=== PATIENT | female | born 1945 | race Caucasian/White ===

== ENCOUNTER 2020-02-21 14:36 | Outpatient (REF) | payer MEDICARE, SELFPAY ==
[2020-02-21 20:08] LABS: Iron 17 ug/dL (50-170); Total Iron Binding Capacity 208 ug/dL (250-450); Transferrin Sat 8 % (15-50)
[2020-02-21 20:34] LABS: ESR 91 mm/hr (0-30)
[2020-02-21 20:37] LABS: C-Reactive Protein 8.24 mg/dL (0.0-0.3)
[2020-02-23 12:12] LABS: Transferrin 158 mg/dL (201-352)
== END 2020-02-21 14:56 ==
LOC: NCHCN 14:36
PROVIDERS: PCP Family Medicine; Visit Provider Nurse Practitioner Family
DX: D64.9 Anemia, unspecified (principal); H53.9 Unspecified visual disturbance
CPT/HCPCS: 85652; 83540; 83550; 84466; 86140

== ENCOUNTER 2020-03-25 11:09 | Outpatient (REF) | payer MEDICARE, SELFPAY ==
[2020-03-25 21:00] LABS: ESR 6 mm/hr (0-30)
== END 2020-03-25 11:29 ==
LOC: NCHCN 11:09
PROVIDERS: PCP Family Medicine; Visit Provider Family Medicine
DX: H47.011 Ischemic optic neuropathy, right eye (principal); M31.6 Other giant cell arteritis
CPT/HCPCS: 85652; 86140

== ENCOUNTER 2020-04-05 15:18 | Outpatient (REF) | payer MEDICARE, SELFPAY ==
[2020-04-05 19:51] LABS: Anion Gap 10.9 mmol/L (3-11); BUN 11 mg/dL (7-18); C-Reactive Protein 1.86 mg/dL (0.0-0.3); CO2 25.1 mmol/L (21.0-32.0); CREATININE 0.64 mg/dL (0.55-1.02); Calcium 8.9 mg/dL (8.5-10.1); Chloride 97 mmol/L (98-107); Glucose 96 mg/dL (74-106); Potassium 4.3 mmol/L (3.5-5.1); Sodium 133 mmol/L (136-145)
[2020-04-05 20:03] LABS: HCT 38.2 % (36.0-46.0); HGB 12.3 g/dL (11.2-15.7); MCHC 32.2 % (32.0-36.0); MCV 86.8 fL (80-95); MPV 8.6 fL (8.0-11.0); Platelet Count 245 10^3/uL (130-400); RDW 17.8 % (11.7-14.6); WBC 14.33 10^3/uL (4.4-10.8)
[2020-04-05 21:31] LABS: ESR 11 mm/hr (0-30)
[2020-04-08 05:24] LABS: Vitamin D 25 Total 51.2 ng/ml (30-100)
== END 2020-04-05 15:38 ==
LOC: NCHCN 15:18
PROVIDERS: PCP Family Medicine; Visit Provider Family Medicine
DX: H47.011 Ischemic optic neuropathy, right eye (principal); M31.6 Other giant cell arteritis; D64.9 Anemia, unspecified; M81.0 Age-related osteoporosis without current pathological fracture; Z51.81 Encounter for therapeutic drug level monitoring
CPT/HCPCS: 80048; 82306; 85027; 85652; 86140

== ENCOUNTER 2020-04-22 20:46 | Outpatient (REF) | payer MEDICARE, SELFPAY ==
[2020-04-22 20:21] LABS: C-Reactive Protein 0.16 mg/dL (0.0-0.3)
[2020-04-22 21:02] LABS: ESR 13 mm/hr (0-30)
== END 2020-04-22 21:06 ==
LOC: NCHCN 20:46
PROVIDERS: PCP Family Medicine; Visit Provider Family Medicine
DX: H47.011 Ischemic optic neuropathy, right eye (principal)
CPT/HCPCS: 85652; 86140

== ENCOUNTER 2020-05-27 10:21 | Outpatient (REF) | payer MEDICARE, SELFPAY ==
[2020-05-27 19:48] LABS: C-Reactive Protein 7.22 mg/dL (0.0-0.3)
[2020-05-27 21:36] LABS: ESR 79 mm/hr (0-30)
== END 2020-05-27 10:41 ==
LOC: NCHCN 10:21
PROVIDERS: PCP Family Medicine; Visit Provider Family Medicine
DX: H47.011 Ischemic optic neuropathy, right eye (principal); G43.809 Other migraine, not intractable, without status migrainosus
CPT/HCPCS: 85652; 86140

== ENCOUNTER 2020-07-01 12:04 | Outpatient (REF) | payer MEDICARE, SELFPAY ==
[2020-07-01 19:22] LABS: C-Reactive Protein 0.85 mg/dL (0.0-0.3)
[2020-07-01 19:58] LABS: ESR 31 mm/hr (0-30)
== END 2020-07-01 12:24 ==
LOC: NCHCN 12:04
PROVIDERS: PCP Family Medicine; Visit Provider Family Medicine
DX: H47.011 Ischemic optic neuropathy, right eye (principal); M31.6 Other giant cell arteritis
CPT/HCPCS: 85652; 86140

== ENCOUNTER 2020-08-08 15:01 | Outpatient (REF) | payer MEDICARE, SELFPAY ==
[2020-08-08 19:15] LABS: C-Reactive Protein 0.39 mg/dL (0.0-0.3)
[2020-08-08 19:41] LABS: ESR 21 mm/hr (0-30)
== END 2020-08-08 15:21 ==
LOC: NCHCN 15:01
PROVIDERS: PCP Family Medicine; Visit Provider Family Medicine
DX: H47.011 Ischemic optic neuropathy, right eye (principal)
CPT/HCPCS: 85652; 86140

== ENCOUNTER 2020-09-10 18:40 | Outpatient (REF) | payer MEDICARE, SELFPAY ==
[2020-09-10 22:32] LABS: ESR 13 mm/hr (0-30)
== END 2020-09-10 19:00 ==
LOC: NCHCN 18:40
PROVIDERS: PCP Family Medicine; Visit Provider Family Medicine
DX: H47.011 Ischemic optic neuropathy, right eye (principal)
CPT/HCPCS: 85652; 86140

== ENCOUNTER 2020-10-16 11:46 | Outpatient (REF) | payer MEDICARE, SELFPAY ==
[2020-10-16 15:30] LABS: C-Reactive Protein 2.75 mg/dL (0.0-0.3)
[2020-10-17 02:12] LABS: ESR 22 mm/hr (<or=30)
== END 2020-10-16 11:47 | disposition home or self-care (01) ==
LOC: NCHCN 11:46
PROVIDERS: PCP Family Medicine; Visit Provider Family Medicine
DX: M31.6 Other giant cell arteritis (principal); H47.011 Ischemic optic neuropathy, right eye; Z51.81 Encounter for therapeutic drug level monitoring
CPT/HCPCS: 85652; 86140

== ENCOUNTER 2020-12-03 13:59 | Outpatient (REF) | payer MEDICARE, SELFPAY ==
[2020-12-03 15:08] LABS: ESR 19 mm//hr (0-30)
[2020-12-03 16:28] LABS: C-Reactive Protein 0.45 mg/dL (0.0-0.3)
== END 2020-12-03 14:00 | disposition home or self-care (01) ==
LOC: NCHCN 13:59
PROVIDERS: PCP Family Medicine; Visit Provider Family Medicine
DX: M31.6 Other giant cell arteritis (principal); H47.011 Ischemic optic neuropathy, right eye; Z51.81 Encounter for therapeutic drug level monitoring
CPT/HCPCS: 85652; 86140

== ENCOUNTER 2021-01-27 16:36 | Outpatient (REF) | payer MEDICARE, SELFPAY ==
[2021-01-27 15:49] LABS: ESR 23 mm/hr (0-30)
[2021-01-27 16:05] LABS: C-Reactive Protein 1.19 mg/dL (0.0-0.3)
== END 2021-01-27 16:37 | disposition home or self-care (01) ==
LOC: NCHCN 16:36
PROVIDERS: PCP Family Medicine; Visit Provider Family Medicine
DX: H47.011 Ischemic optic neuropathy, right eye (principal); Z51.81 Encounter for therapeutic drug level monitoring; Z79.899 Other long term (current) drug therapy; H57.11 Ocular pain, right eye
CPT/HCPCS: 85652; 86140

== ENCOUNTER 2021-02-19 20:12 | Outpatient (REF) | payer MEDICARE, SELFPAY ==
[2021-02-19 20:07] LABS: ESR 37 mm/hr (0-30)
[2021-02-19 20:31] LABS: C-Reactive Protein 3.04 mg/dL (0.0-0.3)
== END 2021-02-19 20:13 | disposition home or self-care (01) ==
LOC: NCHCN 20:12
PROVIDERS: PCP Family Medicine; Visit Provider Family Medicine
DX: M31.6 Other giant cell arteritis (principal); Z79.899 Other long term (current) drug therapy; Z51.81 Encounter for therapeutic drug level monitoring
CPT/HCPCS: 85652; 86140

== ENCOUNTER 2021-03-28 14:41 | Outpatient (REF) | payer MEDICARE, SELFPAY ==
[2021-03-28 19:19] LABS: HCT 31.8 % (36.0-46.0); HGB 9.9 g/dL (11.2-15.7); MCH 29.9 pg (27.0-33.0); MCHC 31.1 % (32.0-36.0); MCV 96.1 fL (80-95); MPV 9.1 fL (8.0-11.0); Platelet Count 451 10^3/uL (130-400); RBC 3.31 10^6/uL (3.93-5.22); RDW 12.5 % (11.7-14.6); WBC 11.78 10^3/uL (4.4-10.8)
[2021-03-28 19:22] LABS: ESR 44 mm/hr (0-30)
[2021-03-28 19:31] LABS: ALT 15 U/L (14-59); AST 11 U/L (15-37); Albumin 2.9 g/dL (3.4-5.0); Alkaline Phosphatase 55 U/L (46-116); Anion Gap 4.7 mmol/L (3-11); BUN 6 mg/dL (7-18); Bilirubin, Total 0.3 mg/dL (0.2-1.0); C-Reactive Protein 7.01 mg/dL (0.0-0.3); CO2 30.3 mmol/L (21.0-32.0); CREATININE 0.7 mg/dL (0.55-1.02); Calcium 8.8 mg/dL (8.5-10.1); Chloride 105 mmol/L (98-107); Glucose 90 mg/dL (74-106); Sodium 140 mmol/L (136-145); Total Protein 5.9 g/dL (6.4-8.2)
[2021-03-28 19:52] LABS: Potassium 2.9 mmol/L (3.5-5.1)
== END 2021-03-28 14:42 | disposition home or self-care (01) ==
LOC: NCHCN 14:41
PROVIDERS: PCP Family Medicine; Visit Provider Family Medicine
DX: D64.9 Anemia, unspecified (principal); R19.7 Diarrhea, unspecified; M31.6 Other giant cell arteritis
CPT/HCPCS: 80053; 85027; 85652; 86140

== ENCOUNTER 2021-04-02 13:19 | Outpatient (REF) | payer MEDICARE, SELFPAY ==
[2021-04-02 14:35] LABS: Abs Immature Grans 0.09 10^3/uL (0.0-0.06); Absolute Basophil Count 0.02 10^3/uL (0.0-0.2); Absolute Lymphocyte Count 2.05 10^3/uL (1.2-3.4); Absolute Monocyte Count 1.18 10^3/uL (0.1-0.8); Absolute Neutrophil Count 8.86 10^3/uL (1.2-6.7); Basophils % 0.2; Eosinophils % 0.8; HCT 32.2 % (36.0-46.0); HGB 9.9 g/dL (11.2-15.7); Immature Grans % 0.7; Lymphocytes % 16.7; MCH 29.7 pg (27.0-33.0); MCHC 30.7 % (32.0-36.0); MCV 96.7 fL (80-95); MPV 9.1 fL (8.0-11.0); Monocytes % 9.6; Nucleated RBC 0 %; Platelet Count 461 10^3/uL (130-400); RBC 3.33 10^6/uL (3.93-5.22); RDW 12.8 % (11.7-14.6); RDW-SD 44.7 fL
[2021-04-02 14:38] LABS: ESR 50 mm/hr (0-30)
[2021-04-02 15:38] LABS: ALT 14 U/L (14-59); AST 13 U/L (15-37); Alkaline Phosphatase 56 U/L (46-116); Anion Gap 9.9 mmol/L (3-11); BUN 7 mg/dL (7-18); Bilirubin, Total 0.3 mg/dL (0.2-1.0); C-Reactive Protein 7.38 mg/dL (0.0-0.3); CO2 27.1 mmol/L (21.0-32.0); CREATININE 0.7 mg/dL (0.55-1.02); Calcium 8.8 mg/dL (8.5-10.1); Chloride 105 mmol/L (98-107); Glucose 90 mg/dL (74-106); Potassium 3.6 mmol/L (3.5-5.1); Sodium 142 mmol/L (136-145); Total Protein 6.1 g/dL (6.4-8.2)
== END 2021-04-02 13:20 | disposition home or self-care (01) ==
LOC: NCHCN 13:19
PROVIDERS: PCP Family Medicine; Visit Provider Family Medicine
DX: Z00.00 Encounter for general adult medical examination without abnormal findings (principal)
CPT/HCPCS: 80053; 85652; 85025; 86140

== ENCOUNTER 2021-10-21 10:44 | Outpatient (REF) | payer MEDICARE, SELFPAY ==
[2021-10-21 12:59] LABS: HCT 35.8 % (36.0-46.0); HGB 11.2 g/dL (11.2-15.7); MCH 30.8 pg (27.0-33.0); MCHC 31.3 % (32.0-36.0); MCV 98.4 fL (80-95); MPV 9.1 fL (8.0-11.0); Platelet Count 410 10^3/uL (130-400); RBC 3.64 10^6/uL (3.93-5.22); RDW 13.1 % (11.7-14.6); RDW-SD 47.1 fL; WBC 10.74 10^3/uL (4.4-10.8)
[2021-10-21 13:02] LABS: ESR 24 mm/hr (0-30)
[2021-10-21 13:08] LABS: C-Reactive Protein 2.32 mg/dL (0.0-0.3)
[2021-10-21 13:21] LABS: Anion Gap 8.2 mmol/L (3-11); BUN 14 mg/dL (7-18); CO2 28.8 mmol/L (21.0-32.0); CREATININE 0.9 mg/dL (0.55-1.02); Calcium 9.2 mg/dL (8.5-10.1); Chloride 105 mmol/L (98-107); FREE T4 0.78 ng/dL (0.76-1.46); Glucose 84 mg/dL (74-106); Sodium 142 mmol/L (136-145); TSH 1.93 uIU/mL (0.36-3.74)
[2021-10-22 12:14] LABS: Parathyroid Hormone,Intact 54 pg/mL (19-88)
[2021-10-22 13:11] LABS: Albumin 60.3 % (55.8-66.1); Total Protein 6.9 g/dL (6.3-8.2)
[2021-10-23 05:20] LABS: Vitamin D 25 Total 47.8 ng/mL (30-100)
== END 2021-10-21 10:45 | disposition home or self-care (01) ==
LOC: NCHCN 10:44
PROVIDERS: Internal Medicine Endocrinology, Diabetes & Metabolism; PCP Family Medicine; Visit Provider Family Medicine
DX: M31.6 Other giant cell arteritis (principal); M80.00XD Age-related osteoporosis with current pathological fracture, unspecified site, subsequent encounter for fracture with routine healing; D64.9 Anemia, unspecified
CPT/HCPCS: 80048; 82306; 85027; 85652; 83970; 84165; 84439; 84443; 86140

== ENCOUNTER 2021-10-21 10:46 | Outpatient (REF) | payer MEDICARE, SELFPAY | END 2021-10-21 10:47 | disposition home or self-care (01) | LOC: LBN 10:46 | PROVIDERS: PCP Family Medicine; Visit Provider Internal Medicine Endocrinology, Diabetes & Metabolism ==

== ENCOUNTER 2022-07-14 15:23 | Outpatient (REF) | payer MEDICARE, SELFPAY ==
[2022-07-14 15:18] LABS: ESR 40 mm/hr (0-30)
[2022-07-14 15:49] LABS: C-Reactive Protein 1.72 mg/dL (0.0-0.3)
[2022-07-14 16:17] LABS: HCT 35.6 % (36.0-46.0); HGB 11.5 g/dL (11.2-15.7)
== END 2022-07-14 15:24 | disposition home or self-care (01) ==
LOC: NCHCN 15:23
PROVIDERS: PCP Family Medicine; Visit Provider Family Medicine
DX: M31.6 Other giant cell arteritis (principal); D64.9 Anemia, unspecified
CPT/HCPCS: 85652; 85014; 85018; 86140

== ENCOUNTER 2022-11-10 13:46 | Outpatient (REF) | payer MEDICARE, SELFPAY ==
[2022-11-10 16:41] LABS: ESR 23 mm/hr (0-30)
[2022-11-10 16:59] LABS: C-Reactive Protein 1.41 mg/dL (0.0-0.3)
[2022-11-10 18:15] LABS: Ferritin 1893 ng/mL (8-252)
== END 2022-11-10 13:47 | disposition home or self-care (01) ==
LOC: NCHCN 13:46
PROVIDERS: PCP Family Medicine; Visit Provider Family Medicine
DX: D64.9 Anemia, unspecified (principal); M31.6 Other giant cell arteritis
CPT/HCPCS: 85652; 82728; 86140

== ENCOUNTER 2023-04-27 14:55 | Outpatient (REF) | payer MEDICARE, SELFPAY ==
[2023-04-27 15:00] LABS: HCT 35.8 % (36.0-46.0); HGB 11.5 g/dL (11.2-15.7); MCH 30.7 pg (27.0-33.0); MCHC 32.1 % (32.0-36.0); MCV 96 fL (80-95); MPV 9.1 fL (8.0-11.0); Platelet Count 342 10^3/uL (130-400); RBC 3.75 10^6/uL (3.93-5.22); RDW 12.7 % (11.7-14.6); RDW-SD 44.9 fL; WBC 9.52 10^3/uL (4.4-10.8)
== END 2023-04-27 14:56 | disposition home or self-care (01) ==
LOC: NCHCN 14:55
PROVIDERS: PCP Family Medicine; Visit Provider Family Medicine
DX: D64.9 Anemia, unspecified (principal)
CPT/HCPCS: 85027

== ENCOUNTER 2024-04-25 15:22 | Outpatient (REF) | payer MEDICARE, SELFPAY ==
--- OUTSIDE RECORDS SUMMARY | 2024-04-25 15:27 | XMS_ITS | Encounter Summary ---
Author Organization [facility] Address [facility] [place] [address] Care Team Providers Care Tile Layer Drainage Name Role Phone Ashley Huang MD Primary Care Provider [phone] Encounter Details Date Type Department Care Team (Late st Contact Info) Description 02/26/2016 1:00 PM EDT Office Visit Hematology/Oncology at [address] [id number] Carlo Garcia APRN [facility] [place] [address] Anemia due to other cause, not classified Social History Tobacco Use Types Packs/Day Years Used Date Smoking Tobacco: Never Sex and Gender Information Value Date Recorded Sex Assigned at Not on file Gender Identity Not on file Sexual Orientation Not on file documented as of this encounter Last Filed Vital Signs Vital Sign Reading Time Taken Comments Blood Pressure 149/62 02/26/2016 1:11 PM EDT Pulse 76 02/26/2016 1:11 PM EDT Temperature 36.7 ??C (98.1 ??F) 02/26/2016 1:11 PM ED T Respiratory Rate 16 02/26/2016 1:11 PM EDT Oxygen Saturation 100% 02/26/2016 1:11 PM EDT Inhaled Oxygen Concentration - - Weight 49.2 kg (108 lb 8 oz) 02/26/2016 1:11 PM EDT Height 155 cm (5' 1.02) 02/26/2016 1:11 PM EDT Body Mass Index 20.48 02/26/2016 1:11 PM EDT documented in this encounter Patient Instructions * Patient Instructions* Carlo Garcia APRN - 03/04/2016 1:50 PM EDT She will return in one year with labs prior cbc cmp SPEP> documented in this encounter Progress Notes * Carlo Garcia APRN - 03/04/2016 1:34 PM EDT Images from the original note were not included. Followup Evaluation This is a 70 y.o.woman who is here for an anemia followup. She was last seen one year ago. She states that she has had no illnesses over the last year. HPI: . She says she has had anemia off and on her whole life. Earlier it was low iron due to periods and she took iron pills, which reversed her anemia. In the last few years they have noticed low hemoglobin but her iron stores have been fine. She came here for consultation about this. She is here with her significant other, Alirio, today. They just got back from [place] for the past 5 months. Symptoms she has includes low back pain, insomnia, and having a lot of stress. She feels tired moreeasily than usual at times. But she is very active and exercises daily and does not feel that the anemia holds her back. She gets nausea during the day. No dyspnea or TSAI. No jaundice. Never had a colonoscopy, but has done stool cards and they have been negative (including this year). Review of Systems: Gen - no fevers, chills, weight loss, fatigue. Has occasional night sweats. Eyes- no vision changes, pain or redness HEENT - no sore throat, mouth sores, difficulty swallowing, ear pain or discharge Neck - no lumps, masses, or stiffness Heart - no chest pain or palpitations Lungs - no dyspnea, cough, hemoptysis, or pleuritic pain GI - no nausea, vomiting, diarrhea, constipation, or abdominal pain. +reflux. No blood in stool. - no dysuria, weak urinary stream, blood in urine, or inability to void. Skin - no rashes, itching, hives, or suspicious lesions MS - no muscle weakness or myalgias, no joint pain or swelling Neuro - no focal weakness, no numbness or tingling Heme - no bleeding, bruising, or lymphadenopathy Past Medical History: Patient Active Problem List Diagnosis ??? Anemia Workup in December 2014 with normal iron levels, no signs of hemolysis, low erythropoietin level despite normal creatinine, SPEP pending. Normocytic normochromic, unclear etiology for the anemia. Does not meet criteria at this time for risk for potent supplementation. Plans to follow every 6 months in hematology clinic. ??? Gastric reflux ??? Anxiety Allergies: Review of patient's allergies indicates no known allergies. Medications: Current Outpatient Prescriptions: ??? multivitamin (THERAGRAN) Tablet, Take 1 tablet by mouth daily., Disp: , Rfl: ??? BIOTIN ORAL, Take by mouth., Disp: , Rfl: ??? b complex vitamins Capsule, Take 1 capsule by mouth daily., Disp: , Rfl: ??? acetaminophen (TYLENOL) 325 mg Tablet, Take 325 mg by mouth every 4 hours as needed for Pain., Disp: , Rfl: ??? citalopram (CELEXA) 20 mg Tablet, Take 20 mg by mouth daily., Disp: , Rfl: Social History: Social History Social History Narrative Never smoker. Doesn't drink alcohol currently. Lives with significant other, Alirio. She helps take care of her elderly mother as well. 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 Family History: Family History Problem Relation Age of Onset ??? Anemia Sister Sister and father had diabetes. No FH of significant blood disorders or cancers that she knows of. Vital Signs: BP 149/62 (Patient Position: Sitting) Pulse 76 Temp 36.7 ??C (98.1 ??F) (Oral) Resp 16 Ht 155 cm (5' 1.02) Wt 49.2 kg (108 lb 8 oz) SpO2 100% BMI 20.48 kg/m2 Physical exam: Gen - alert and oriented, no distress, conversant Eyes - pupils equal and reactive to light, Mouth - oropharynx clear, no mucositis, normal tongue and lips Neck - no cervical lymphadenopathy, masses, or stiffness Heart - RRR, no murmurs or rubs, no palpable thrill, normal pulses Lungs - clear to auscultation bilaterally, Abdomen - no hepatosplenomegaly, no masses, soft, non-tender, non-distended, normal bowel sounds Extremities - no LE edema, normal perfusion, no clubbing or cyanosis Musculoskeletal - normal (5/5) strength and tone in arms and legs, normal gait, mobile with normal range of motion of joints Neuro - normal cranial nerves, no sensory or cerebellar deficits noted Skin - no rashes or lesions on visible skin, warm and dry Heme - no lymphadenopathy in cervical, axillary or supraclavicular areas; no petechiae or bruising Labs: [facility] labs: 05/15/14 - Hgb 11.4, Hct 35.3%, Ferritin 567, 06/06/14 -FOB negative 12/12/13 - ESR 22, Ferritin 513, TIBC 253, Iron 90, Transferrin 36% 12/12/13 - T protein 6.7, Direct bili 0.06, T bili 0.28, AST 14, ALT 22, Alk Phos 52, Albumin 3. LAB RESULTS: Results for PREETI ZHANG ( ) as of 12/31/2014 12:22 Ref. Range 12/27/2014 14:09 WBC Latest Range: 4.0-10.0 x10(3)/mcL 7.3 RBC Latest Range: 3.93-5.22 x10(6)/mcL 3.83 (L) Hemoglobin Latest Range: 11.2-15.7 gm/dL 11.6 Hematocrit Latest Range: 34.0-45.0 % 35.2 MCV Latest Range: 79.0-94.0 fL 91.9 MCH Latest Range: 26.6-32.2 pg 30.3 MCHC Latest Range: 32.0-36.5 gm/dL 33.0 RDWSD Latest Range: 35.0-46.0 fL 41.9 RDWCV Latest Range: 10.9-14.4 % 12.5 Platelets Latest Range: 145-370 x10(3)/mcL 279 MPV Latest Range: 9.0-12.0 fL 9.3 Plat Immature % Latest Range: 0.0-7.4 % 1.[address] % Latest Range: 0.5-2.4 % 1.[address] Abs Latest Range: 0.027-0.095 x10(6)/mcL 0.060 Immature Retic% Latest Range: 2.3-15.9 % 2.6 Reticulated Hgb Latest Range: 28.8-38.9 pg 33.3 Neutr Abs (ANC) Latest Range: 1.50-6.30 x10(3)/mcL 4.11 Neutrophils % No range found 56.4 Immature Gran % No range found 0.00 Lymphocytes % No range found 34.4 Monocytes % No range found 6.4 Eosinophils % No range found 2.3 Basophils % No range found 0.5 Danyell Gran Abs Latest Range: 0.00-0.05 x10(3)/mcL 0.00 Lymphocytes Abs Latest Range: 1.0-3.6 x10(3)/mcL 2.5 Monocyte Abs Latest Range: 0.2-1.0 x10(3)/mcL 0.5 Eosinophils Abs Latest Range: 0.0-0.5 x10(3)/mcL 0.2 Basophils Abs Latest Range: 0.0-0.2 x10(3)/mcL 0.0 Sodium Latest Range: 135-145 mmol/L 143 Potassium Latest Range: 3.5-5.0 mmol/L 4.3 Chloride Latest Range: 98-107 mmol/L 103 CO2 Latest Range: 22-31 mmol/L 22 Anion Gap Latest Range: 5-15 mmol/L 18 (H) BUN Latest Range: 8-18 mg/dL 13 Creatinine Latest Range: 0.70-1.20 mg/dL 0.88 Estimated GFR Latest Range: >=60 >60 Glucose Lvl Latest Range: 60-199 mg/dL 88 Calcium Latest Range: 8.5-10.5 mg/dL 9.5 Total Protein Latest Range: 6.1-8.0 gm/dL 7.4 Albumin Latest Range: 3.2-5.2 gm/dL 4.5 Total Bilirubin Latest Range: 0.2-1.3 mg/dL 0.2 Bili, Direct Latest Range: 0.0-0.3 mg/dL 0.1 Alk Phos Latest Range: 40-104 unit/L 49 AST Latest Range: 0-30 unit/L 16 ALT Latest Range: 0-30 unit/L 11 LDH Latest Range: 110-220 unit/L 148 Ferritin Latest Range: 30-400 ng/mL 549 (H) Folate Lvl Latest Range: 4.6-34.8 ng/mL >20.0 Vitamin B-12 Latest Range: 207-974 pg/mL 663 Erythropoietin Latest Range: 2.6 - 18.5 mIU/mL 7.5 *UPEP: normal Labs today: WBC 5.86 H/H 11.4/34.8 PLts 322 retic count 1.8 Haptoglobin 122 cmp within limits SPEP- M spike not reportable. Assessment/Plan: 70 y.o. woman who is very healthy but who has had persistent mild anemia. Her ironstores have been adequate and she has no signs of hemolysis (normal bilirubin) or inflammatory disease (normal ESR) that would cause this. Normal exam - no enlarged spleen or nodes. This may be a benign, mild anemia. She continues to have labs that are nearly in the normal range and she is asymptomatic. She knows that if she should develop any new issues that we would be happy to see her back sooner than 1 year. Otherwise, She will return in one year with labs prior cbc cmp SPEP CARLO GARCIA APRN documented in this encounter Plan of Treatment Not on file documented as of this encounter Visit Diagnoses Diagnosis Anemia due to other cause, not classified documented in this encounter Care Teams Tile Layer Drainage Relationship Specialty Start Date End Date Ashley Huang MD [address] [place] [address] PCP - General 07/02/14 documented as of this encounter
--- OUTSIDE RECORDS SUMMARY | 2024-04-25 15:27 | XMS_ITS | Encounter Summary ---
Author Organization [facility] [place] [address] Care Team Providers Care Talent Development Coordinator Name Role Phone Ashley Huang MD Primary Care Provider Reason for Referral * Diagnostic Test (Routine) - Closed Specialty Diagnoses / Procedures Referred By Contac t Referred To Contact Radiology Diagnoses Compression fracture of L3 vertebra, initial encounter Procedures IR Vertebroplasty Lumbar Single Level Adarsh Jose MD [facility] [place] [address] [facility] [place] [address] Referral ID Status Reason Start Date Expiration Date V isits Requested Visits Authorized [id number] Closed Specialty Service Requested 06/11/2020 12/10/2021 1 1 * Diagnostic Test (Routine) - Closed Specialty Diagnoses / Procedures Referred By Contac t Referred To Contact Radiology Diagnoses Compression fracture of body of thoracic vertebra Procedures IR Vertebroplasty Thoracic Single Level Adarsh Jose MD [facility] [place] [address] [facility] [place] [address] Referral ID Status Reason Start Date Expiration Date V isits Requested Visits Authorized [id number] Closed Specialty Service Requested 06/11/2020 12/10/2021 1 1 Reason for Visit * Diagnostic Test (Routine) - Closed Specialty Diagnoses / Procedures Referred By Contac t Referred To Contact Radiology Diagnoses Compression fracture of L3 vertebra, initial encounter Procedures IR Vertebroplasty Lumbar Single Level Adarsh Jose MD [facility] [place] [address] [facility] [place] [address] Referral ID Status Reason Start Date Expiration Date V isits Requested Visits Authorized [id number] Closed Specialty Service Requested 06/11/2020 12/10/2021 1 1 Encounter Details Date Type Department Care Team (Latest Contact Info) Description 06/19/2020 9:35 AM EDT - 06/19/2020 11:59 PM EDT Hospital [place] [address] Khanh Conrad MD [facility] [place] [address] Compression fracture of body of thoracic vertebra; Compression fracture of L3 vertebra, initial encounter Discharge Disposition: Home Social History Tobacco Use Types Packs/Day Years Used Date Smoking Tobacco: Never Sex and Gender Information Value Date Recorded Sex Assigned at Not on file Gender Identity Not on file Sexual Orientation Not on file documented as of this encounter Last Filed Vital Signs Vital Sign Reading Time Taken Comments Blood Pressure 155/66 06/19/2020 1:00 PM EDT Pulse 80 06/19/2020 12:25 PM EDT Temperature 36.4 ??C (97.5 ??F) 06/19/2020 12:40 PM E DT Respiratory Rate 17 06/19/2020 1:00 PM EDT Oxygen Saturation 91% 06/19/2020 1:00 PM EDT Inhaled Oxygen Concentration - - Weight - - Height - - Body Mass Index - - documented in this encounter Discharge Instructions * Discharge Instructions* Miriam Caicedo RN - 06/19/2020 11:18 AM EDT [facility] Discharge Instructions for Vertebroplasty Your vertebroplasty was performed at T11, L3, L4 level(s) Activity Level: Rest for the remainder of the day today. Do not lift anything heavier than a gallonof milk for at least three days, then gradually increase your activity as tolerated. Bandage: A small bandage is present at the puncture site on your back and should remain in place for 24 hours, then can be removed. You may shower while the dressing is in place. No swimming, tub baths or whirlpools for one week. When to call your healthcare provider: If you see any redness, swelling or drainage around or from the puncture sites If you develop shaking chills If you develop a fever equal to or greater than 101 degrees fahrenheit If you develop pain at the insertion site(s) If your original back pain worsens, if you develop back pain in a new area or if you develop weakness or numbness in one or both legs When to call the Interventional Radiology Department: Please call with any questions or concerns. If it is during regular office hours, please call [phone]. If it is after regular office hours, or on weekends or holidays, please call [phone] and ask to speak to the [employer] convenience recycle center tech for Interventional Radiology. XXX You have received medication during your procedure to help lessen anxiety and keep you comfortable. We recommend that you do not drive, operate equipment, sign any important documents, or smoke unattended for 24 hours following your procedure. You may have received medication before and/or during your procedure, which affects judgement and reaction time. Be careful on stairs, as you may be unsteady on your feet. You may eat a regular diet as tolerated IV site -- slight redness, or tenderness is normal, you can use a warm compress. If tenderness and redness increases or foul drainage occurs, please contact your M. D. We will call you in a couple of weeks to check on your progress. Revised 06/22/19 documented in this encounter Medications at Time of Discharge Medication Sig Dispensed Refills Start Date End Date HYDROcodone-acetaminophen ([place]) 5-325 mg Tablet Take 5-325 mg by mouth 3 times daily as needed. 06/07/2020 multivitamin (THERAGRAN) TabletIndications:Anemia, unspecified anemia type Take 1 tablet by mouth daily. BIOTIN ORALIndications:Anemia, unspecified anemia type Take by mouth. b complex vitamins CapsuleIndications:Anemia, unspecified anemia type Take 1 capsule by mouth daily. citalopram (CELEXA) 20 mg Tablet Take 20 mg by mouth daily. documented as of this encounter Progress Notes * Miriam Caicedo RN - 06/19/2020 11:59 PM EDT Interventional and Vascular Radiology Post-Procedure Call Name: Preeti Zhang Age: 75 y.o. Sex: Female Date of : 1945 (home) No relevant phone numbers on file. PCP Ashley Huang MD [phone] Date/Time of call: June 20, 2020/9:36 AM Procedure: T11, L3, L4 Vertebroplasty Procedural Provider: Cassi MAY Contact with patient or if not, with whom? Yes Message left on answering machine? [X] N/A Are you having pain related to your procedure now? [X] No Are you having any swelling or bleeding from the site? No Are there any improvement in your symptoms? Yes Are you having any other problems related to your procedure? No Did you understand the discharge instructions given and do you have any questions? Yes Do you have any comments about your Nurse or Provider or the care you received? [X] No Comments (if applicable): * Miriam Caicedo RN - 06/19/2020 11:06 AM EDT [facility]GIO NURSING DATABASE Name: PREETI ZHANG Date of : 1945 AGE: 75 y.o. Address: [address] [address] (home) Mobile: No relevant phone numbers on file. Referring Provider: Adarsh Jose REASON FOR VISIT: Order Questions Answers Where will study be performed? [facility] Radiology [120] Is the patient on anticoagulant / anitplatelet therapy ? No Reason for exam and clinical history: Multiple compression fractures, T11 No Known Allergies Pertinent PSH: No past surgical history on file. Date/Procedure Meds given/comments 06/19/20 Vertebroplasty T11, L3, L4 Ancef 2 g IV; Fentanyl 150 mcg IV; Versed 2.5 mg IV 1056 to procedure room 4 via stretcher. Onto table prone. All monitors, O2, safety strap in place. Meds per protocol. Laboratory Results: Lab Results Component Value Date CREATININE 0.88 12/27/2014 Lab Results Component Value Date K 4.3 12/27/2014 Lab Results Component Value Date PLATELET 279 12/27/2014 * Uri Parker MD - 06/19/2020 10:13 AM EDT INTERVENTIONAL RADIOLOGY FOCUSED H&P: Procedure: The patient's history and physical exam have been reviewed and completed. There has been no interval change from that of the pre-operative history and physical exam done within the last 30 days. Physical Exam: Cardiovascular: Regular, Normal Pulmonary: Breath sounds clear to auscultation The planned procedure (and sedation plan if appropriate) , its benefits and risks, and alternativeswere discussed with the patient. The patient consented to the procedure. PRE-SEDATION ASSESSMENT: Sedation Plan: moderate (conscious sedation) ASA: 2: Patient with mild systemic disease Mallampati: II: tonsillar pillars are blocked by the tongue Current medications reviewed: Yes Allergies reviewed: Yes documented in this encounter Miscellaneous Notes * Brief Op Note - Adarsh Jose MD - 06/19/2020 12:38 PM EDT INTERVENTIONAL RADIOLOGY BRIEF PROCEDURE NOTE Patient Name: Preeti Zhang : 1945 Case Date: 06/19/2020 Operators: Attending: Ricardo Mathews MD Resident/Fellow/Student: Adarsh Jose MD, Uri Parker Post-operative diagnosis/Indication: Multiple subacute compression fractures Name of Procedure Performed: Multilevel vertebroplasty Brief description of the procedure: ?? Skin overlying the T11, L3, and L4 vertebral bodies were anesthetized with 1% Lidocaine ?? The elder-osteum overlying the pedicles of the T11, L3, and L4 vertebral bodies were anesthetizedwith 1% Lidocaine ?? 13 gauge Yuri guide needles were used for the T11, and L3 levels, !! Gauge [place] guide needle was used for the L4 level ?? The stylets were removed from the guide needles and subsequently bone cement was delivered into the fractured vertebral bodies ?? Cement was allowed to harden and the guide needles were removed ?? Manual pressure was held over the puncture sites for approximately 5 minutes ?? Puncture sites were cleaned and dressed in the usual sterile fashion Findings of the procedure: ?? Compression fractures involving the levels of T11, L3, and L4 ?? Successful Vertebroplasty of T11, L3, and L4 EBL: <10 mL Specimens: None Complications: No immediate Plan/Disposition: Transfer the patient to recovery for post procedural care. Anticipated discharge in 2 hours once meeting criteria FULL PROCEDURE NOTE TO FOLLOW IN IMAGE REPORT documented in this encounter Plan of Treatment Not on file documented as of this encounter Procedures Procedure Name Priority Date/Time Associated Diagnosis Comments IR VERTEBROPLASTY THORACIC SINGLE LEVEL Routine 06/19/2020 12:36 PM EDT Compression fracture of body of thoracic vertebra IR VERTEBROPLASTY LUMBAR SINGLE LEVEL Routine 06/19/2020 12:36 PM EDT IR VERTEBROPLASTY LUMBAR SINGLE LEVEL Routine 06/19/2020 12:36 PM EDT Compression fracture of L3 vertebra, initial encounter documented in this encounter Results * IR Vertebroplasty Lumbar Single Level (06/19/2020 12:36 PM EDT) Anatomical Region Laterality Modality Spine X-Ray Angiograph y Narrative 06/20/2020 8:21 AM EDT EXAMINATION: IR VERTEBROPLASTY THORACIC SINGLE LEVEL , IR VERTEBROPLASTY LUMBAR SINGLE LEVEL, IR VERTEBROPLASTY LUMBAR SINGLE LEVEL CLINICAL HISTORY: Multiple compression fractures, T11, L3, and L4 TECHNIQUE: Following discussion of the risks and benefits of the procedure, informed written and verbal consent was obtained. A pre-procedure MRI revealed acute compression fractures of T11, L3, and L4. The patient was placed prone on the fluoroscopic table in the prone position. The skin overlying the lumbar spine was prepped and draped using maximal sterile technique. Due to the painful nature of the procedure a total of ??2.5 mg Versed and 150 mcg of Fentanyl was administered by the IR nurses during continuous monitoring of blood pressure, pulse oximetry, and respiration rate. 2 g of Ancef was administered prior to the procedure for prophylaxis. The ??T11 level was localized. 10 cc 1% lidocaine was used for local anesthesia of the entry site at the skin and periosteum overlying the ??T11 level. A small skin incision was made and a 13ga introducer needle (Yuri) was advanced through the right pedicle and to the ??T11 vertebral body during an intermittent fluoroscopic guidance. Approximately 2 cc of polymethylmethacrylate injected. The ??L3 level was localized. 10 cc 1% lidocaine was used for local anesthesia of the entry site at the skin and periosteum overlying the ??L3 level. A small skin incision was made and a 13ga introducer needle ([place]) was advanced through the right pedicle and to the ??L3 vertebral body during an intermittent fluoroscopic guidance.Approximately 4 cc of polymethylmethacrylate was injected. The ??L4 level was then localized. 10 cc 1% lidocaine was used for local anesthesia of the entry site at the skin and periosteum overlying the ??L4 level. A small skin incision was made and a 11ga introducer needle (Yuri) was advanced through the left pedicle and to the ??L4 vertebral body during an intermittent fluoroscopic guidance. Approximately 4 cc of polymethylmethacrylate was injected. The polymethylmethacrylate/contrast mixture was prepped and injected through the T11, L3, and L4 needle. Small amount of cement extravasation anterior to the superior endplate of the T11 vertebral body. The cement was allowed to harden. The needles were removed and post-procedure imaging obtained. The patient tolerated the procedure well. The patient was monitored in the recovery room post-procedure. FINDINGS Deposition of cement within the ??T11, L3, and L4 vertebral bodies. Small amount of cement extravasation demonstrated anterior to the T11 superior vertebral body. IMPRESSION 1. T11 vertebroplasty with a small amount of cement extravasation anterior to the superior endplate measuring 5 x 5 mm. 2. ??Uncomplicated L3 and L4 vertebroplasties. Preliminary report signed by: Adarsh Jose at 06/19/2020 4:51 PM I, Dr. mathews, present for the entire procedure and present for the administration of fentanyl and Versed with continuous monitoring of blood pressure, oxygenation and pulse rate. I have personally reviewed the image(s) and the resident's interpretation and agree with the findings, Ricardo Mathews at 06/20/2020 8:21 AM Thank you for letting us participate in the care of this patient. For questions regarding this report, please contact the number below. ? Procedure Note Ricardo Mathews MD - 06/20/2020 EXAMINATION: IR VERTEBROPLASTY THORACIC SINGLE LEVEL , IR VERTEBROPLASTYLUMBAR SINGLE LEVEL, IR VERTEBROPLASTY LUMBAR SINGLE LEVEL CLINICAL HISTORY: Multiple compression fractures, T11, L3, and L4 TECHNIQUE: Following discussion of the risks and benefits of the procedure,informed written and verbal consent was obtained. A pre-procedure MRI revealedacute compression fractures of T11, L3, and L4. The patient was placed prone onthe fluoroscopic table in the prone position. The skin overlying the lumbarspine was prepped and draped using maximal sterile technique. Due to thepainful nature of the procedure a total of 2.5 mg Versed and 150 mcg of Fentanylwas administered by the IR nurses during continuous monitoring of bloodpressure, pulse oximetry, and respiration rate. 2 g of Ancef was administered priorto the procedure for prophylaxis. The T11 level was localized. 10 cc 1% lidocaine was used for localanesthesia of the entry site at the skin and periosteum overlying the T11 level. Asmall skin incision was made and a 13ga introducer needle (Yuri) wasadvanced through the right pedicle and to the T11 vertebral body during anintermittent fluoroscopic guidance. Approximately 2 cc of polymethylmethacrylateinjected. The L3 level was localized. 10 cc 1% lidocaine was used for localanesthesia of the entry site at the skin and periosteum overlying the L3 level. A smallskin incision was made and a 13ga introducer needle (Niota) was advancedthrough the right pedicle and to the L3 vertebral body during an intermittent fluoroscopic guidance.Approximately 4 cc of polymethylmethacrylate wasinjected. The L4 level was then localized. 10 cc 1% lidocaine was used for local anesthesia of the entry site at the skin and periosteum overlying the I2jsymh. A small skin incision was made and a 11ga introducer needle (Yuri)was advanced through the left pedicle and to the L4 vertebral body duringan intermittent fluoroscopic guidance. Approximately 4 cc ofpolymethylmethacrylate was injected. The polymethylmethacrylate/contrast mixture was prepped and injectedthrough the T11, L3, and L4 needle. Small amount of cement extravasation anterior tothe superior endplate of the T11 vertebral body. The cement was allowed toharden. The needles were removed and post-procedure imaging obtained. The patient tolerated the procedure well. The patient was monitored in the recovery room post-procedure. FINDINGS Deposition of cement within the T11, L3, and L4 vertebral bodies. Smallamount of cement extravasation demonstrated anterior to the T11 superiorvertebral body. IMPRESSION 1. T11 vertebroplasty with a small amount of cement extravasation anteriorto the superior endplate measuring 5 x 5 mm. 2. Uncomplicated L3 and L4 vertebroplasties. Preliminary report signed by: Adarsh Jose at 06/19/2020 4:51 PM I, Dr. mathews, present for the entire procedure and present for the administration of fentanyl and Versed with continuous monitoring ofblood pressure, oxygenation and pulse rate. I have personally reviewed the image(s) and the resident's interpretationand agree with the findings, Ricardo Mathews at 06/20/2020 8:21 AM Thank you for letting us participate in the care of this patient. Forquestions regarding this report, please contact the number below. Ricardo Mathews MD IMG IR ORDERABLES * IR Vertebroplasty Lumbar Single Level (06/19/2020 12:36 PM EDT) Anatomical Region Laterality Modality Spine X-Ray Angiograph y Narrative 06/20/2020 8:21 AM EDT EXAMINATION: IR VERTEBROPLASTY THORACIC SINGLE LEVEL , IR VERTEBROPLASTY LUMBAR SINGLE LEVEL, IR VERTEBROPLASTY LUMBAR SINGLE LEVEL CLINICAL HISTORY: Multiple compression fractures, T11, L3, and L4 TECHNIQUE: Following discussion of the risks and benefits of the procedure, informed written and verbal consent was obtained. A pre-procedure MRI revealed acute compression fractures of T11, L3, and L4. The patient was placed prone on the fluoroscopic table in the prone position. The skin overlying the lumbar spine was prepped and draped using maximal sterile technique. Due to the painful nature of the procedure a total of ??2.5 mg Versed and 150 mcg of Fentanyl was administered by the IR nurses during continuous monitoring of blood pressure, pulse oximetry, and respiration rate. 2 g of Ancef was administered prior to the procedure for prophylaxis. The ??T11 level was localized. 10 cc 1% lidocaine was used for local anesthesia of the entry site at the skin and periosteum overlying the ??T11 level. A small skin incision was made and a 13ga introducer needle (Niota) was advanced through the right pedicle and to the ??T11 vertebral body during an intermittent fluoroscopic guidance. Approximately 2 cc of polymethylmethacrylate injected. The ??L3 level was localized. 10 cc 1% lidocaine was used for local anesthesia of the entry site at the skin and periosteum overlying the ??L3 level. A small skin incision was made and a 13ga introducer needle (Yuri) was advanced through the right pedicle and to the ??L3 vertebral body during an intermittent fluoroscopic guidance.Approximately 4 cc of polymethylmethacrylate was injected. The ??L4 level was then localized. 10 cc 1% lidocaine was used for local anesthesia of the entry site at the skin and periosteum overlying the ??L4 level. A small skin incision was made and a 11ga introducer needle (Yuri) was advanced through the left pedicle and to the ??L4 vertebral body during an intermittent fluoroscopic guidance. Approximately 4 cc of polymethylmethacrylate was injected. The polymethylmethacrylate/contrast mixture was prepped and injected through the T11, L3, and L4 needle. Small amount of cement extravasation anterior to the superior endplate of the T11 vertebral body. The cement was allowed to harden. The needles were removed and post-procedure imaging obtained. The patient tolerated the procedure well. The patient was monitored in the recovery room post-procedure. FINDINGS Deposition of cement within the ??T11, L3, and L4 vertebral bodies. Small amount of cement extravasation demonstrated anterior to the T11 superior vertebral body. IMPRESSION 1. T11 vertebroplasty with a small amount of cement extravasation anterior to the superior endplate measuring 5 x 5 mm. 2. ??Uncomplicated L3 and L4 vertebroplasties. Preliminary report signed by: Adarsh Jose at 06/19/2020 4:51 PM I, Dr. mathews, present for the entire procedure and present for the administration of fentanyl and Versed with continuous monitoring of blood pressure, oxygenation and pulse rate. I have personally reviewed the image(s) and the resident's interpretation and agree with the findings, Ricardo Mathews at 06/20/2020 8:21 AM Thank you for letting us participate in the care of this patient. For questions regarding this report, please contact the number below. ? Procedure Note Ricardo Mathews MD - 06/20/2020 EXAMINATION: IR VERTEBROPLASTY THORACIC SINGLE LEVEL , IR VERTEBROPLASTYLUMBAR SINGLE LEVEL, IR VERTEBROPLASTY LUMBAR SINGLE LEVEL CLINICAL HISTORY: Multiple compression fractures, T11, L3, and L4 TECHNIQUE: Following discussion of the risks and benefits of the procedure,informed written and verbal consent was obtained. A pre-procedure MRI revealedacute compression fractures of T11, L3, and L4. The patient was placed prone onthe fluoroscopic table in the prone position. The skin overlying the lumbarspine was prepped and draped using maximal sterile technique. Due to thepainful nature of the procedure a total of 2.5 mg Versed and 150 mcg of Fentanylwas administered by the IR nurses during continuous monitoring of bloodpressure, pulse oximetry, and respiration rate. 2 g of Ancef was administered priorto the procedure for prophylaxis. The T11 level was localized. 10 cc 1% lidocaine was used for localanesthesia of the entry site at the skin and periosteum overlying the T11 level. Asmall skin incision was made and a 13ga introducer needle (Yuri) wasadvanced through the right pedicle and to the T11 vertebral body during anintermittent fluoroscopic guidance. Approximately 2 cc of polymethylmethacrylateinjected. The L3 level was localized. 10 cc 1% lidocaine was used for localanesthesia of the entry site at the skin and periosteum overlying the L3 level. A smallskin incision was made and a 13ga introducer needle (Niota) was advancedthrough the right pedicle and to the L3 vertebral body during an intermittent fluoroscopic guidance.Approximately 4 cc of polymethylmethacrylate wasinjected. The L4 level was then localized. 10 cc 1% lidocaine was used for local anesthesia of the entry site at the skin and periosteum overlying the A3qshls. A small skin incision was made and a 11ga introducer needle (Yuri)was advanced through the left pedicle and to the L4 vertebral body duringan intermittent fluoroscopic guidance. Approximately 4 cc ofpolymethylmethacrylate was injected. The polymethylmethacrylate/contrast mixture was prepped and injectedthrough the T11, L3, and L4 needle. Small amount of cement extravasation anterior tothe superior endplate of the T11 vertebral body. The cement was allowed toharden. The needles were removed and post-procedure imaging obtained. The patient tolerated the procedure well. The patient was monitored in the recovery room post-procedure. FINDINGS Deposition of cement within the T11, L3, and L4 vertebral bodies. Smallamount of cement extravasation demonstrated anterior to the T11 superiorvertebral body. IMPRESSION 1. T11 vertebroplasty with a small amount of cement extravasation anteriorto the superior endplate measuring 5 x 5 mm. 2. Uncomplicated L3 and L4 vertebroplasties. Preliminary report signed by: Adarsh Jose at 06/19/2020 4:51 PM I, Dr. mathews, present for the entire procedure and present for the administration of fentanyl and Versed with continuous monitoring ofblood pressure, oxygenation and pulse rate. I have personally reviewed the image(s) and the resident's interpretationand agree with the findings, Ricardo Mathews at 06/20/2020 8:21 AM Thank you for letting us participate in the care of this patient. Forquestions regarding this report, please contact the number below. Khanh Conrad MD IMG IR ORDERABLES * IR Vertebroplasty Thoracic Single Level (06/19/2020 12:36 PM EDT) Anatomical Region Laterality Modality Spine X-Ray Angiograph y Narrative 06/20/2020 8:21 AM EDT EXAMINATION: IR VERTEBROPLASTY THORACIC SINGLE LEVEL , IR VERTEBROPLASTY LUMBAR SINGLE LEVEL, IR VERTEBROPLASTY LUMBAR SINGLE LEVEL CLINICAL HISTORY: Multiple compression fractures, T11, L3, and L4 TECHNIQUE: Following discussion of the risks and benefits of the procedure, informed written and verbal consent was obtained. A pre-procedure MRI revealed acute compression fractures of T11, L3, and L4. The patient was placed prone on the fluoroscopic table in the prone position. The skin overlying the lumbar spine was prepped and draped using maximal sterile technique. Due to the painful nature of the procedure a total of ??2.5 mg Versed and 150 mcg of Fentanyl was administered by the IR nurses during continuous monitoring of blood pressure, pulse oximetry, and respiration rate. 2 g of Ancef was administered prior to the procedure for prophylaxis. The ??T11 level was localized. 10 cc 1% lidocaine was used for local anesthesia of the entry site at the skin and periosteum overlying the ??T11 level. A small skin incision was made and a 13ga introducer needle ([employer]) was advanced through the right pedicle and to the ??T11 vertebral body during an intermittent fluoroscopic guidance. Approximately 2 cc of polymethylmethacrylate injected. The ??L3 level was localized. 10 cc 1% lidocaine was used for local anesthesia of the entry site at the skin and periosteum overlying the ??L3 level. A small skin incision was made and a 13ga introducer needle ([employer]) was advanced through the right pedicle and to the ??L3 vertebral body during an intermittent fluoroscopic guidance.Approximately 4 cc of polymethylmethacrylate was injected. The ??L4 level was then localized. 10 cc 1% lidocaine was used for local anesthesia of the entry site at the skin and periosteum overlying the ??L4 level. A small skin incision was made and a 11ga introducer needle (Niota) was advanced through the left pedicle and to the ??L4 vertebral body during an intermittent fluoroscopic guidance. Approximately 4 cc of polymethylmethacrylate was injected. The polymethylmethacrylate/contrast mixture was prepped and injected through the T11, L3, and L4 needle. Small amount of cement extravasation anterior to the superior endplate of the T11 vertebral body. The cement was allowed to harden. The needles were removed and post-procedure imaging obtained. The patient tolerated the procedure well. The patient was monitored in the recovery room post-procedure. FINDINGS Deposition of cement within the ??T11, L3, and L4 vertebral bodies. Small amount of cement extravasation demonstrated anterior to the T11 superior vertebral body. IMPRESSION 1. T11 vertebroplasty with a small amount of cement extravasation anterior to the superior endplate measuring 5 x 5 mm. 2. ??Uncomplicated L3 and L4 vertebroplasties. Preliminary report signed by: Adarsh Jose at 06/19/2020 4:51 PM I, Dr. mathews, present for the entire procedure and present for the administration of fentanyl and Versed with continuous monitoring of blood pressure, oxygenation and pulse rate. I have personally reviewed the image(s) and the resident's interpretation and agree with the findings, Ricardo Mathews at 06/20/2020 8:21 AM Thank you for letting us participate in the care of this patient. For questions regarding this report, please contact the number below. ? Procedure Note Ricrado Mathews MD - 06/20/2020 EXAMINATION: IR VERTEBROPLASTY THORACIC SINGLE LEVEL , IR VERTEBROPLASTYLUMBAR SINGLE LEVEL, IR VERTEBROPLASTY LUMBAR SINGLE LEVEL CLINICAL HISTORY: Multiple compression fractures, T11, L3, and L4 TECHNIQUE: Following discussion of the risks and benefits of the procedure,informed written and verbal consent was obtained. A pre-procedure MRI revealedacute compression fractures of T11, L3, and L4. The patient was placed prone onthe fluoroscopic table in the prone position. The skin overlying the lumbarspine was prepped and draped using maximal sterile technique. Due to thepainful nature of the procedure a total of 2.5 mg Versed and 150 mcg of Fentanylwas administered by the IR nurses during continuous monitoring of bloodpressure, pulse oximetry, and respiration rate. 2 g of Ancef was administered priorto the procedure for prophylaxis. The T11 level was localized. 10 cc 1% lidocaine was used for localanesthesia of the entry site at the skin and periosteum overlying the T11 level. Asmall skin incision was made and a 13ga introducer needle (Yuri) wasadvanced through the right pedicle and to the T11 vertebral body during anintermittent fluoroscopic guidance. Approximately 2 cc of polymethylmethacrylateinjected. The L3 level was localized. 10 cc 1% lidocaine was used for localanesthesia of the entry site at the skin and periosteum overlying the L3 level. A smallskin incision was made and a 13ga introducer needle (Yuri) was advancedthrough the right pedicle and to the L3 vertebral body during an intermittent fluoroscopic guidance.Approximately 4 cc of polymethylmethacrylate wasinjected. The L4 level was then localized. 10 cc 1% lidocaine was used for local anesthesia of the entry site at the skin and periosteum overlying the G3qkrad. A small skin incision was made and a 11ga introducer needle ([employer])was advanced through the left pedicle and to the L4 vertebral body duringan intermittent fluoroscopic guidance. Approximately 4 cc ofpolymethylmethacrylate was injected. The polymethylmethacrylate/contrast mixture was prepped and injectedthrough the T11, L3, and L4 needle. Small amount of cement extravasation anterior tothe superior endplate of the T11 vertebral body. The cement was allowed toharden. The needles were removed and post-procedure imaging obtained. The patient tolerated the procedure well. The patient was monitored in the recovery room post-procedure. FINDINGS Deposition of cement within the T11, L3, and L4 vertebral bodies. Smallamount of cement extravasation demonstrated anterior to the T11 superiorvertebral body. IMPRESSION 1. T11 vertebroplasty with a small amount of cement extravasation anteriorto the superior endplate measuring 5 x 5 mm. 2. Uncomplicated L3 and L4 vertebroplasties. Preliminary report signed by: Adarsh Jose at 06/19/2020 4:51 PM I, Dr. mathews, present for the entire procedure and present for the administration of fentanyl and Versed with continuous monitoring ofblood pressure, oxygenation and pulse rate. I have personally reviewed the image(s) and the resident's interpretationand agree with the findings, Ricardo Mathews at 06/20/2020 8:21 AM Thank you for letting us participate in the care of this patient. Forquestions regarding this report, please contact the number below. Khanh Conrad MD IMG IR ORDERABLES documented in this encounter Visit Diagnoses Diagnosis Compression fracture of body of thoracic vertebra Compression fracture of L3 vertebra, initial encounter documented in this encounter Administered Medications Inactive Administered Medications - up to 3 most recent administrations Medication Order MAR Action Action Date Dose Rate Site ceFAZolin (Ancef) 2 g in dextrose 5% 100 mL infusion 2 g, Intravenous, ONCE, 1 dose, On Wed06/19/20 at 1100, Administer over 30 Minutes, Redose every 3 hours if CrCl is greater than 20. Redose every 8 hours if CrCl is less than 20., Angio/IR (Day of Procedure), Indication for (Active or Suspected): Prophylaxis Given 06/19/2020 10:53 AM EDT 2 g 200 mL /hr fentaNYL 50 mcg/mL multi-dose injection 25-50 mcg, Intravenous, EVERY 3 MIN PRN, Starting on Wed06/19/20 at 1033, Until Wed06/19/20 at 1319, Pain, per unit protocol, - Start dose 50 mcg (reduce dose to 25 mcg if history of sedation sensitivity). - Titration dose 25-50 mcg IV, (based on patient response) every 3 minutes PRN, to maintain procedural pain less than 2 per pain Scale. Maximum dose: 50 mcg/dose, 250 mcg/hour For use in Interventional Radiology (IR) only for procedural sedation with direct provider supervision and verbal order., Angio/IR (Intra-Procedure), Routine Given 06/19/2020 12:12 PM EDT 25 mcg Given 06/19/2020 11:58 AM EDT 25 mcg Given 06/19/2020 11:40 AM EDT 25 mcg lidocaine (XYLOCAINE) 10 mg/mL (1 %) injection 10 mg 10 mg, Subcutaneous, ONCE, 1 dose, On Wed06/19/20 at 1100, For use in Interventional Radiology (IR) only for procedure with direct provider supervision and verbal order., Angio/IR (Intra-Procedure), Routine Given 06/19/2020 11:25 AM EDT 10 mg midazolam (PF) (VERSED) multi-dose injection 0.5-1 mg 0.5-1 mg, Intravenous, EVERY 3 MIN PRN, Starting on Wed06/19/20 at 1033, Until Wed06/19/20 at 1319, Sleep, - Start dose; 1 mg (Reduce dose to 0.5 mg if history of sedation sensitivity). - Titration dose: 0.5 mg - 1 mg (based on patient response) every 3 minutes PRN to obtain RASS score of -3. Maximum dose: 1 mg per dose, 5 mg/hour. For use in Interventional Radiology (IR) only for procedural sedation with direct provider supervision and verbal order., Angio/IR (Intra-Procedure), Routine Given 06/19/2020 11:58 AM EDT 0.5 mg Given 06/19/2020 11:40 AM EDT 0.5 mg Given 06/19/2020 11:22 AM EDT 0.5 mg sodium chloride 0.9 % (flush) flush 5 mL 5 mL, Intravenous, 2 TIMES DAILY, First dose on Wed06/19/20 at 1045, Until Discontinued, Routine Given 06/19/2020 10:45 AM EDT 5 mLs sodium chloride 0.9% infusion 1,000 mL, at 100 mL/hr, Intravenous, CONTINUOUS, Starting on Wed06/19/20 at 1100, Until Wed06/19/20 at 1319, Angio/IR (Day of Procedure) New Bag 06/19/2020 11:00 AM EDT 1,000 mLs 100 mL/hr documented in this encounter Care Teams Talent Development Coordinator Relationship Specialty Start Date End Date Ashley Huang MD [address] [place] [address] PCP - General 07/02/14 documented as of this encounter
--- OUTSIDE RECORDS SUMMARY | 2024-04-25 15:27 | XMS_ITS | Encounter Summary ---
Author Organization [facility] Address [address] [place] [address] Care Team Providers Care Dietitian Assistant Name Role Phone Unknown, Provider Primary Care Provider Reason for Visit * Reason Onset Date Comments Appointment Related 07/10/2021 Encounter Details Date Type Department Care Team (Late st Contact Info) Description 07/10/2021 Telephone [facility] Interventional Radiology - [address] [id number] Linh Chiu PA-C [address] [facility] [place] [address] Appointment Related Social History Tobacco Use Types Packs/Day Years Used Date Smoking Tobacco: Never Assessed Interpersonal Safety Answer Date Record ed Physically Hurt Never 04/07/2020 Verbally Threaten Not on file 04/07/2020 Sex and Gender Information Value Date Recorded Sex Assigned at Not on file Gender Identity Not on file Sexual Orientation Not on file documented as of this encounter Miscellaneous Notes * Telephone Encounter - Emily Burleson - 07/10/2021 0848 EDT Called and left 4th and final message with Preeti requesting return phone call to IR clinic if she would like to proceed with consultation with the Neuro IR team to 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
--- OUTSIDE RECORDS SUMMARY | 2024-04-25 15:27 | XMS_ITS | Encounter Summary ---
Author Organization [facility] Address [address] [place] [address] Care Team Providers Care Heavy Equipment Technician Name Role Phone Unknown, Provider Primary Care Provider [phone] Encounter Details Date Type Department Care Team (Late st Contact Info) Description 02/22/2020 Lab Requisition [facility] Pathology & Laboratory Medicine - [facility] [address] [place] [address] Outr Resulting Lab, Provider Social History Tobacco Use Types Packs/Day Years Used Date Smoking Tobacco: Never Assessed Sex and Gender Information Value Date Recorded Sex Assigned at Not on file Gender Identity Not on file Sexual Orientation Not on file documented as of this encounter Plan of Treatment Not on file documented as of this encounter Procedures Procedure Name Priority Date/Time Associated Diagnosis Comments TRANSFERRIN Routine 02/21/2020 14:05 EDT documented in this encounter Results * (ABNORMAL) TRANSFERRIN (02/21/2020 14:05 EDT) Transferrin 158(L) 201 - 352 mg/dL 02/23/2020 12:07 EDT [facility] Blood VENOUS BLOOD / Unknown 02/21/2020 14:05 EDT 02/22/2020 15:54 EDT Provider Outr Resulting Lab CHEMISTRY & BLOOD GAS ORDERABLES [facility] [address] [place] [address] documented in this encounter Visit Diagnoses Not on filedocumented in this encounter Care Teams Heavy Equipment Technician Relationship Specialty Start Date End Date Unknown, ProviderMD PCP - General 07/15/15 documented as of this encounter
--- OUTSIDE RECORDS SUMMARY | 2024-04-25 15:27 | XMS_ITS | Encounter Summary ---
Author Organization [facility] Address [facility] [place] [address] Care Team Providers Care Paste Up Artist Name Role Phone Ashley Huang MD Primary Care Provider [phone] Encounter Details Date Type Department Care Team (Latest Contact Info) Description 11/03/2021 10:00 AM EST TH Visit (TeleHealth) [place] [address] Lou Sawyer MD [facility] [place] [address] Osteoporosis, unspecified osteoporosis type, unspecified pathological fracture presence; PATIENT NOT SEEN Social History Tobacco Use Types Packs/Day Years Used Date Smoking Tobacco: Never Sex and Gender Information Value Date Recorded Sex Assigned at Not on file Gender Identity Not on file Sexual Orientation Not on file documented as of this encounter Progress Notes * Lou Sawyer MD - 11/03/2021 10:00 AM EST This patient was not seen in this encounter. I called and left message to do DXA 01/2022. documented in this encounter Plan of Treatment Not on file documented as of this encounter Visit Diagnoses Diagnosis Osteoporosis, unspecified osteoporosis type, unspecified pathological fracture presence PATIENT NOT SEEN documented in this encounter Care Teams Paste Up Artist Relationship Specialty Start Date End Date Ashley Huang MD [address] [place] [address] PCP - General 07/02/14 documented as of this encounter
--- OUTSIDE RECORDS SUMMARY | 2024-04-25 15:27 | XMS_ITS | Referral Summary ---
Author Organization [facility] Address [address] [place] [address] Care Team Providers Care Investigation Officer Name Role Phone Unknown, Provider Primary Care Provider Social History Tobacco Use Types Packs/Day Years Used Date Smoking Tobacco: Never Assessed Interpersonal Safety Answer Date Record ed Physically Hurt Never 04/07/2020 Verbally Threaten Not on file 04/07/2020 Sex and Gender Information Value Date Recorded Sex Assigned at Not on file Gender Identity Not on file Sexual Orientation Not on file Plan of Treatment Not on file Care Teams Investigation Officer Relationship Specialty Start Date End Date Unknown, Provider, PCP - General 07/15/15
--- OUTSIDE RECORDS SUMMARY | 2024-04-25 15:27 | XMS_ITS | Encounter Summary ---
Author Organization [facility] Address [facility] [place] [address] Care Team Providers Care Aircraft Machinist Name Role Phone Ashley Huang MD Primary Care Provider [phone] Reason for Visit * Reason Comments Follow-up Encounter Details Date Type Department Care Team (Late st Contact Info) Description 01/09/2015 8:30 AM EDT Follow-Up Hematology/Oncology at [address] [address] Louann Payne MD [facility] [address] [place] [address] Anemia, unspecified anemia type Discharge Disposition: Home Social History Tobacco Use Types Packs/Day Years Used Date Smoking Tobacco: Never Sex and Gender Information Value Date Recorded Sex Assigned at Not on file Gender Identity Not on file Sexual Orientation Not on file documented as of this encounter Last Filed Vital Signs Vital Sign Reading Time Taken Comments Blood Pressure 151/70 01/09/2015 8:26 AM EDT Pulse 60 01/09/2015 8:26 AM EDT Temperature 36.4 ??C (97.5 ??F) 01/09/2015 8 :26 AM EDT Respiratory Rate 16 01/09/2015 8:26 AM EDT Oxygen Saturation 100% 01/09/2015 8:2 6 AM EDT Inhaled Oxygen Concentration - - Weight 46.7 kg (103 lb) 01/09/2015 8:26 AM EDT Height 154.5 cm (5' 0.83) 01/09/2015 8 :26 AM EDT measured in clinic Body Mass Index 19.57 01/09/2015 8:26 AM EDT documented in this encounter Progress Notes * Louann Payne MD - 01/09/2015 8:56 AM EDT Patient Active Problem List Diagnosis ??? Anemia Workup in December 2014 with normal iron levels, no signs of hemolysis, low erythropoietin level despite normal creatinine, SPEP pending. Normocytic normochromic, unclear etiology for the anemia. Does not meet criteria at this time for risk for potent supplementation. Plans to follow every 6 months in hematology clinic. ??? Gastric reflux ??? Anxiety Was my pleasure to see Mrs. Zhang and her back in clinic today. I initially met Mrs. Zhang about 2 weeks ago at the [facility] with Dr. Mike Carcamo. At that time she had just returned from [place] and had not had any lab values in over 5 months. We sent a basic anemia workup. Hemoglobin was 11.7 which was normochromic and normocytic. Creatinine was normal. Iron studies were normal as were her B12 and folate levels. There were no signs of hemolysis. Unfortunately an SPEP was ordered but a UPEP was done. We will have to do the SPEP. The only abnormality was that her risk level came back unusually low at 7.5. At this time her hemoglobin is not yet less than 10/would not qualify for e rythropoietin supplementation per Medicare and insurance guidelines. If her hemoglobin never dropped below 10 and we could consider erythropoietin supplementation. I will order an SPEP and plan to follow her every 6 months. At this time etiology of the anemia remains unclear. Given the negative workup and the fact that she is normochromic and normocytic, bone marrow biopsy is not likely to be helpful at this time. We might consider a bone marrow biopsy in thefuture, especially if the anemia worsens. Of note, white cell line and platelet lines are all within normal. 15 minutes was spent in discussion we will see the patient back 6 months with a CBC CMP and erythropoietin level. I will ask her to get an SPEP prior to that time at [facility]. documented in this encounter Plan of Treatment Not on file documented as of this encounter Visit Diagnoses Diagnosis Anemia, unspecified anemia type documented in this encounter Care Teams Aircraft Machinist Relationship Specialty Start Date End Date Ashley Huang MD [address] [place] [address] PCP - General 07/02/14 documented as of this encounter
--- OUTSIDE RECORDS SUMMARY | 2024-04-25 15:27 | XMS_ITS | Encounter Summary ---
Author Organization [facility] Address [address] [place] [address] Care Team Providers Care Dietetic Tech Name Role Phone Unknown, Provider Primary Care Provider Reason for Visit * Reason Onset Date Comments Appointment Related 07/22/2021 Encounter Details Date Type Department Care Team (Late st Contact Info) Description 07/22/2021 Telephone [facility] Interventional Radiology - [address] [address] Linh Chiu PA-C [address] [facility], [address] [place] [address] Appointment Related Social History Tobacco [...] * Telephone Encounter - Emily Burleson - 07/22/2021 1338 EST Incoming call from Preeti regarding plan for NEWS CORRESPONDENT consultation with Neuro IR this Patient left details cancelling upcoming appointment I returned patients call and discussed the following: cancelling because no longer in pain at this time. I have cancelled this request and closed referral. Ms. Zhang verbalized understanding and agrees with Plan of Care. No cognitive barriers were identified during this conversation. She has our contact number to call with questions. Emily Burleson documented in this encounter Plan of Treatment Not on file documented as of this encounter Visit Diagnoses Not on filedocumented in this encounter Care Teams Dietetic Tech Relationship Specialty Start Date End Date Unknown, Provider, PCP - General 07/15/15 documented as of this encounter
--- OUTSIDE RECORDS SUMMARY | 2024-04-25 15:27 | XMS_ITS | Encounter Summary ---
Author Organization [facility] [place] [address] Care Team Providers Care Garment Fitter Name Role Phone Ashley Huang MD Primary Care Provider [phone] Encounter Details Date Type Department Care Team (Late st Contact Info) Description 06/06/2020 Ancillary Procedure [place] [address] Ashley Huang MD [address] [place] [address] Social History Tobacco Use Types Packs/Day Years Used Date Smoking Tobacco: Never Sex and Gender Information Value Date Recorded Sex Assigned at Not on file Gender Identity Not on file Sexual Orientation Not on file documented as of this encounter Plan of Treatment Not on file documented as of this encounter Procedures Procedure Name Priority Date/Time Associated Diagnosis Comments FILM LIBRARY STORAGE ONLY MR SPINE Routine 06/06/2020 12:00 AM EDT documented in this encounter Results * Film Library- Storage Only MR Spine (06/06/2020 12:00 AM EDT) Narrative [facility] - 06/08/2020 12:32 PM EDT This exam is auto-finalizing. It's purpose is for storage only. Ashley Huang MD G FILM LIBRARY ORD ERABLES [place], [place] documented in this encounter Visit Diagnoses Not on filedocumented in this encounter Care Teams Garment Fitter Relationship Specialty Start Date End Date Ashley Huang MD [address] [place] [address] PCP - General 07/02/14 documented as of this encounter
--- OUTSIDE RECORDS SUMMARY | 2024-04-25 15:27 | XMS_ITS | Encounter Summary ---
Author Organization [facility] Address [address] [place] [address] Care Team Providers Care Sandwich Board Carrier Name Role Phone Unknown, Provider Primary Care Provider Encounter Details Date Type Department Care Team (Latest Contact Info) Description 06/14/2017 8:48 EDT - 06/14/2017 23:59 EDT Hospital Encounter [address] [address] Unknown, Provider, Discharge Disposition: Home or Self Care Social History Tobacco Use Types Packs/Day Years Used Date Smoking Tobacco: Never Assessed Sex and Gender Information Value Date Recorded Sex Assigned at Not on file Gender Identity Not on file Sexual Orientation Not on file documented as of this encounter Discharge Disposition Disposition Code Departure Means Destination Home or Self Group Home documented in this encounter Plan of Treatment Not on file documented as of this encounter Visit Diagnoses Not on filedocumented in this encounter Care Teams Sandwich Board Carrier Relationship Specialty Start Date End Date Unknown, Provider, PCP - General 07/15/15 documented as of this encounter
--- OUTSIDE RECORDS SUMMARY | 2024-04-25 15:27 | XMS_ITS | Encounter Summary ---
[place] [address] Care Team Providers Care Swing Frame Grinder Operator Name Role Phone Ashley Huang MD Primary Care Provider [phone] Encounter Details Date Type Department Care Team (Late st Contact Info) Description 06/19/2020 9:10 AM EDT Laboratory Appointment Lab [address] [place] [id number] Coagulopathy Social History Tobacco Use Types Packs/Day Years Used Date Smoking Tobacco: Never Sex and Gender Information Value Date Recorded Sex Assigned at Not on file Gender Identity Not on file Sexual Orientation Not on file documented as of this encounter Plan of Treatment Not on file documented as of this encounter Procedures Procedure Name Priority Date/Time Associated Diagnosis Comments HC PARTIAL THROMBOPLASTIN TIME STAT 06/19/2020 9:26 AM EDT Coagulopathy HC PROTHROMBIN TIME STAT 06/19/2020 9 :26 AM EDT Coagulopathy HC PLATELET COUNT STAT 06/19/2020 9:2 6 AM EDT Coagulopathy documented in this encounter Results * Prothrombin Time (06/19/2020 9:26 AM EDT) Prothrombin Time 10.8 9.4 - 12.5 sec [facility] International Normalization Ratio 1.0 [facility] Comment: An INR <2.0 indicates adequate procoagulant activity for hemostasis in most patients without underlying bleeding disorders, though the INR may not adequately reflect hemostatic capacity in patients with liver disease and synthetic impairment. The recommended target INR range for therapeutic anticoagulation is 2.0 ? 3.0 for most applications, though lower and higher ranges may be appropriate depending on clinical circumstances. Blood specimen (specimen) 06/19/2020 9:26 AM EDT 06/19/2020 9:40 AM EDT Narrative Resulting Agency Comment Spec In Lab hKanh Conrad MD HEMATOLOGY ORDERABLE S Performing Organization Address [facility] Co de Phone Number [facility] [place] [address] * APTT (06/19/2020 9:26 AM EDT) Partial Thromboplastin Time 25 25 - 37 sec [facility] Comment: The PTT is NOT appropriate for heparin monitoring. Use the Anti-Xa level for heparin monitoring (HEP UFH) or LMWH monitoring (HEP LMW). A PTT less than 37 seconds generally indicates adequate hemostasis. Blood specimen (specimen) 06/19/2020 9:26 AM EDT 06/19/2020 9:40 AM EDT Narrative Resulting Agency Comment Spec In Lab Khanh Conrad MD HEMATOLOGY ORDERABLE S Performing Organization Address [facility] de Phone Number [facility] [place] [address] * (ABNORMAL) Platelet count (06/19/2020 9:26 AM EDT) Platelet 482(H) 145 - 357 x10(3)/mc L [facility] Immature Plt % 0.9 0.0 - 7.4 % [facility] Comment: Limitation of the Immature Platelet Fraction (IPF)-May be less reliable when the platelet count is less than 60z465/uL due to statistical imprecision. The IPF value provides an assessment of the Bone Marrow production status. ??It is useful in differentiating Thrombocytopenia caused by platelet destruction/consumption versus decreased production. It also helps to determine the imminent release of platelets and can be therefore a helpful parameter in Chemotherapy and Bone marrow transplant patients. ELEVATED IPF value: ?? When the bone marrow is in a state of over production such as when increased destruction and consumption are the underlying issue. ?? When the marrow is recovering post chemotherapy or bone marrow transplant. LOW to NORMAL IPF value: ?? When the bone marrow in not responding and is in a decreased state of production. References: [employer] The Clinical Value of the Immature Platelet Fraction (IPF) in Cell Recovery Document Number [id number] 02/2011 [employer] The Role of the Immature Platelet Fraction (IPF) in the Differential Diagnosis of Thrombocytopenia, Document [id number] V001/15/14 Blood specimen (specimen) 06/19/2020 9:26 AM EDT 06/19/2020 9:40 AM EDT Narrative Resulting Agency Comment Spec In Lab Khanh Conrad MD HEMATOLOGY ORDERABLE S Performing Organization Address City/State/[facility] Co de Phone Number [facility] [place] [address] documented in this encounter Visit Diagnoses Diagnosis Coagulopathy Other and unspecified coagulation defects documented in this encounter Care Teams Swing Frame Grinder Operator Relationship Specialty Start Date End Date Ashley Huang MD [address] [place] [address] PCP - General 07/02/14 documented as of this encounter
--- OUTSIDE RECORDS SUMMARY | 2024-04-25 15:27 | XMS_ITS | Encounter Summary ---
Author Organization [facility] Address [address] [place] [address] Care Team Providers Care Bartender Name Role Phone Unknown, Provider Primary Care Provider Reason for Visit * Reason Onset Date Comments Appointment Related 07/07/2021 Encounter Details Date Type Department Care Team (Late st Contact Info) Description 07/07/2021 Telephone [facility] Interventional Radiology - [address] [id number] Linh Chiu PA-C [address] [facility], [address] [place] [address] Appointment Related Social History Tobacco [...] * Telephone Encounter - Emily Burleson - 07/07/2021 1244 EDT Called and left 3rd message for Preeti requesting return phone call to IR clinic to confirm plan forcurrently scheduled appointment with Neuro IR for this Explained this is my third attempt and requesting return phone call servando otherwise will need to cancel at this time Requesting return phone call to [phone] option 1 documented in this encounter Plan of Treatment Not on file documented as of this encounter Visit Diagnoses Not on filedocumented in this encounter Care Teams Bartender Relationship Specialty Start Date End Date Unknown, Provider, PCP - General 07/15/15 documented as of this encounter
--- OUTSIDE RECORDS SUMMARY | 2024-04-25 15:27 | XMS_ITS | Encounter Summary ---
Author Organization [facility] Address [address] [place] [address] Care Team Providers Care Service Coordinator Name Role Phone Unknown, Provider Primary Care Provider Reason for Visit * Reason Onset Date Comments Appointment Related 07/10/2021 Encounter Details Date Type Department Care Team (Late st Contact Info) Description 07/10/2021 Telephone [facility] Interventional Radiology - [address] [address] Linh Chiu PA-C [address] [facility] [place], [address] [place] [address] Appointment Related Social History Tobacco [...] Telephone Encounter - Emily Burleson - 07/10/2021 1011 EDT Outgoing call to [facility] regarding Selene referral to IR for 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 Explained that if still indicated in the future they should have patient reach out to IR directly At this time referral closed as unable to contact patient. documented in this encounter Plan of Treatment Not on file documented as of this encounter Visit Diagnoses Not on filedocumented in this encounter Care Teams Service Coordinator Relationship Specialty Start Date End Date Unknown, Provider, PCP - General 07/15/15 documented as of this encounter
--- OUTSIDE RECORDS SUMMARY | 2024-04-25 15:27 | XMS_ITS | Encounter Summary ---
Author Organization [facility] Address [address] [place] [address] Care Team Providers Care Information Assurance Analyst Name Role Phone Unknown, Provider Primary Care Provider [phone] Reason for Visit * Reason Onset Date Comments Appointment Related 06/30/2021 Encounter Details Date Type Department Care Team (Late st Contact Info) Description 06/30/2021 Telephone [facility] Interventional Radiology - [address] [address] Linh Chiu PA-C 111 [facility] [place], [address] [place] [address] Appointment Related Social History Tobacco [...] * Telephone Encounter - Emily Burleson - 06/30/2021 1242 EDT Called and left voicemail requesting return phone call from Preeti to confirm plan for scheduling consultation with [facility] to discuss HAND BUFFING WHEEL FORMER Requesting return phone call to [phone] option 1 documented in this encounter Plan of Treatment Not on file documented as of this encounter Visit Diagnoses Not on filedocumented in this encounter Care Teams Information Assurance Analyst Relationship Specialty Start Date End Date Unknown, Provider, PCP - General 07/15/15 documented as of this encounter
--- OUTSIDE RECORDS SUMMARY | 2024-04-25 15:27 | XMS_ITS | Encounter Summary ---
Author Organization [facility] [place] [address] Care Team Providers Care Bundler Seasonal Greenery Name Role Phone Ashley Huang MD Primary Care Provider [phone] Reason for Referral * Diagnostic Test (Routine) - Closed Specialty Diagnoses / Procedures Referred By Contac t Referred To Contact Radiology Diagnoses Compression fracture of L3 vertebra, initial encounter Procedures IR Vertebroplasty Lumbar Single Level Adarsh Jose MD [facility] [place] [address] [facility] [place] [address] Referral ID Status Reason Start Date Expiration Date V isits Requested Visits Authorized [id number] Closed Specialty Service Requested 06/11/2020 12/10/2021 1 1 * Diagnostic Test (Routine) - Closed Specialty Diagnoses / Procedures Referred By Contac t Referred To Contact Radiology Diagnoses Compression fracture of body of thoracic vertebra Procedures IR Vertebroplasty Thoracic Single Level Adarsh Jose MD [facility] [place] [address] [facility] [place] [address] Referral ID Status Reason Start Date Expiration Date V isits Requested Visits Authorized [id number] Closed Specialty Service Requested 06/11/2020 12/10/2021 1 1 Encounter Details Date Type Department Care Team (Late st Contact Info) Description 06/11/2020 [place] [address] Adarsh Jose MD [facility] [place] [address] Compression fracture of body of thoracic vertebra; Compression fracture of L3 vertebra, initial encounter; Coagulopathy Social History Tobacco Use Types Packs/Day Years Used Date Smoking Tobacco: Never Sex and Gender Information Value Date Recorded Sex Assigned at Not on file Gender Identity Not on file Sexual Orientation Not on file documented as of this encounter Progress Notes * Adarsh Jose MD - 06/11/2020 5:03 PM EDT Images from the original note were not included. NEURORADIOLOGY PRE-PROCEDURE NOTE Name: Preeti Zhang Date of : 1945 Referring Physician: Ashley Huang MD Indication: Multiple compression fractures Planned Procedure: T11 and L3 acute to subacute compression fractures Chief Complaint/HPI: Preeti Zhang is a 75 y.o. female with a past bmedical history of osteoporosis who has recently sustained spontaneous multiple compression fractures without known inciting event. These fractures were demonstrated on recent MRI of the lumbar spine performed on 06/06/20. She has tried medical therapy for the past 4 weeks which have resulted in sub-optimal therapeutic results. Prior to the fractures she lead a very active lifestyle and now she no longer tolerate transitioning from lying to sitting or from sitting to standing. With conservative medical management she rates her pain a 6-7/10 and while attempting to transition she rates the pain a 10/10. Radiology is consulted for evaluation for possible vertebroplasty. Patient Active Problem List Diagnosis Code ??? Anemia D64.9 ??? Gastric reflux K21.9 ??? Anxiety F41.9 No Known Allergies Medications: Current Outpatient Medications: ??? multivitamin (THERAGRAN) Tablet, Take 1 tablet [...] mg by mouth daily., Disp: , Rfl: Labs: Lab Results Component Value Date/Time PLATELET 279 12/27/2014 02:09 PM Imaging: MRI dated 06/06/20 demonstrating edematous subacute compression fractures of T11 and L3 Assessment / Plan: 75 y.o. female with a past medical history of osteoporosis who recently sustained two spinal compression fractures. Plan: Vertebroplasty of T11 and L3 Labs to be performed day of procedure: Platelet count and coagulation profile the day of the procedure. Medication to STOP: None Sedation: moderate (conscious sedation) Additional medications for procedure: Lidocaine 1% Consent: Pending Adarsh Jose MD 06/11/2020 5:06 PM documented in this encounter Plan of Treatment Not on file documented as of this encounter Results * IR Vertebroplasty Lumbar [...] was made and a 13ga introducer needle ([place]) was advanced through the right pedicle and to the ??T11 vertebral body during an intermittent fluoroscopic guidance. Approximately 2 cc of polymethylmethacrylate injected. The ??L3 level was localized. 10 cc 1% lidocaine was used for local anesthesia of the entry site at the skin and periosteum overlying the ??L3 level. A small skin incision was made and a 13ga introducer needle ([place]) was advanced through the right pedicle and [...] report, please contact the number below. ? Electronically signed by: RIDGE Kearns [facility] ([phone]), at 06/20/2020 8:21 AM Procedure Note Ricardo Mathews MD - 06/20/2020 [...] was made and a 13ga introducer needle ([place]) wasadvanced through the right pedicle and to the T11 vertebral body during anintermittent fluoroscopic guidance. Approximately 2 cc of polymethylmethacrylateinjected. The L3 level was localized. 10 cc 1% lidocaine was used for localanesthesia of the entry site at the skin and periosteum overlying the L3 level. A smallskin incision was made and a 13ga introducer needle ([place]) was advancedthrough the right pedicle and to the L3 vertebral body during an intermittent fluoroscopic guidance.Approximately 4 cc of polymethylmethacrylate wasinjected. The L4 level was then localized. 10 cc 1% lidocaine was used for local anesthesia of the entry site at the skin and periosteum overlying the L7wobsr. A small skin incision was made and a 11ga introducer needle ([employer])was advanced through the left pedicle and to [...] was made and a 13ga introducer needle ([place]) was advanced through the right pedicle and to the ??T11 vertebral body during an intermittent fluoroscopic guidance. Approximately 2 cc of polymethylmethacrylate injected. The ??L3 level was localized. 10 cc 1% lidocaine was used for local anesthesia of the entry site at the skin and periosteum overlying the ??L3 level. A small skin incision was made and a 13ga introducer needle ([place]) was advanced through the right pedicle and [...] was made and a 13ga introducer needle ([place]) wasadvanced through the right pedicle and to the T11 vertebral body during anintermittent fluoroscopic guidance. Approximately 2 cc of polymethylmethacrylateinjected. The L3 level was localized. 10 cc 1% lidocaine was used for localanesthesia of the entry site at the skin and periosteum overlying the L3 level. A smallskin incision was made and a 13ga introducer needle ([place]) was advancedthrough the right pedicle and to the L3 vertebral body during an intermittent fluoroscopic guidance.Approximately 4 cc of polymethylmethacrylate wasinjected. The L4 level was then localized. 10 cc 1% lidocaine was used for local anesthesia of the entry site at the skin and periosteum overlying the W4idxwy. A small skin incision was made and [...] Khanh Conrad MD IMG IR ORDERABLES * (ABNORMAL) Platelet count (06/19/2020 9:26 AM EDT) Platelet 482(H) 145 - 357 x10(3)/mc L [facility] Immature Plt % 0.9 0.0 - 7.4 % [facility] Comment: Limitation of the Immature Platelet Fraction (IPF)-May be less reliable when the platelet count is less than 93p631/uL due to statistical imprecision. The IPF value [...] in a decreased state of production. References: [employer] The Clinical Value of the Immature Platelet Fraction (IPF) in Cell Recovery Document Number [id number] 02/2011 [employer] The Role of the Immature Platelet Fraction (IPF) in the Differential Diagnosis of Thrombocytopenia, Document [id number] V001/15/14 P0514 Blood specimen (specimen) 06/19/2020 9:26 AM EDT 06/19/2020 9:40 AM EDT Narrative Resulting Agency Comment Spec In Lab Khanh Conrad MD HEMATOLOGY ORDERABLE S [facility] [place] [address] * APTT (06/19/2020 9:26 AM EDT) Partial Thromboplastin Time 25 25 - 37 sec [facility] Comment: The PTT is NOT appropriate for heparin monitoring. Use the Anti-Xa level for heparin monitoring (HEP UFH) or LMWH monitoring (HEP LMW). A PTT less than 37 seconds generally indicates adequate hemostasis. Blood specimen (specimen) 06/19/2020 9:26 AM EDT 06/19/2020 9:40 AM EDT Narrative Resulting Agency Comment Spec In Lab Khanh Conrad MD HEMATOLOGY ORDERABLE S Performing Organization Address [facility] Co de Phone Number [facility] [place] [address] * Prothrombin Time (06/19/2020 9:26 AM EDT) Prothrombin Time 10.8 9.4 - 12.5 sec [facility] International Normalization Ratio 1.0 [facility] Comment: An INR <2.0 indicates adequate [...] MD HEMATOLOGY ORDERABLE S Performing Organization Address [facility] Co de Phone Number [facility] [place] [address] documented in this encounter Visit Diagnoses Diagnosis Compression fracture of body of thoracic vertebra Compression fracture of L3 vertebra, initial encounter Coagulopathy Other and unspecified coagulation defects Compression fracture of body of thoracic vertebra Compression fracture of L3 vertebra, initial encounter documented in this encounter Care Teams Bundler Seasonal Greenery Relationship Specialty Start Date End Date Ashley Huang MD [address] [place] [address] PCP - General 07/02/14 documented as of this encounter
--- OUTSIDE RECORDS SUMMARY | 2024-04-25 15:27 | XMS_ITS | Encounter Summary ---
Author Organization [facility] Address [address] [place] [address] Care Team Providers Care Hot Top Liner Helper Name Role Phone Unknown, Provider Primary Care Provider [phone] Encounter Details Date Type Department Care Team (Late st Contact Info) Description 10/21/2021 Lab Requisition [facility] Pathology & Laboratory Medicine - [facility] [address] [place] [address] Outr Resulting Lab, Provider Social History Tobacco [...] Procedure Name Priority Date/Time Associated Diagnosis Comments SPEP, INCLUDES QUANTITATION OF MONOCLONAL SPIKE PERFORMABLE Today 10/21/2021 9:45 EST PTH INTACT Routine 10/21/2021 9:45 EST SPEP, INCLUDES QUANTITATION OF MONOCLONAL SPIKE Routine 10/21/2021 9:45 EST PROTEIN, TOTAL Today 10/21/2021 9:45 EST documented in this encounter Results * (ABNORMAL) SPEP, INCLUDES QUANTITATION OF MONOCLONAL SPIKE PERFORMABLE (10/21/2021 9:45 EST) Albumin % 60.3 55.8 - 66.1 % 10/22/2021 13:07 EST [facility] Alpha-1 % 5.4(H) 2.9 - 4.9 % 10/22/2021 13:07 [facility] Alpha-2 % 14.1(H) 7.1 - 11.8 % 10/22/2021 13:07 [facility] Beta % 10.3 8.4 - 13.1 % 10/22/2021 13:07 [facility] Gamma % 9.9(L) 11.1 - 18.8 % 10/22/2021 13:07 [facility] SPEP Comment No apparent monoclonal protein seen on serum electrophoresis 10/22/2021 13:07 [facility] Comment:See scanned/suppleme ntary report. Total Protein 6.9 6.3 - 8.2 g/dL 10/22/2021 13:07 [facility] Blood VENOUS BLOOD / Unknown 10/21/2021 9:45 EST 10/21/2021 21:35 EST Provider Outr Resulting Lab CHEMISTRY & BLOOD GAS ORDERABLES Performing Organization Address [facility] de Phone Number [facility] [address] [place] [address] * PROTEIN, TOTAL (10/21/2021 9:45 EST) Blood VENOUS BLOOD / Unknown 10/21/2021 9:45 EST 10/21/2021 21:35 EST Provider Outr Resulting Lab CHEMISTRY & BLOOD GAS ORDERABLES Performing Organization Address [facility] Co de Phone Number [facility] [address] [place] [address] * PTH INTACT (10/21/2021 9:45 EST) Intact PTH 54 19 - 88 pg/mL 10/22/2021 12:10 EST [facility] Blood VENOUS BLOOD / Unknown 10/21/2021 9:45 EST 10/21/2021 21:35 EST Provider Outr Resulting Lab CHEMISTRY & BLOOD GAS ORDERABLES [facility] [address] [place] [address] documented in this encounter Visit Diagnoses Not on filedocumented in this encounter Care Teams Hot Top Liner Helper Relationship Specialty Start Date End Date Unknown, Provider, PCP - General 07/15/15 documented as of this encounter
--- OUTSIDE RECORDS SUMMARY | 2024-04-25 15:27 | XMS_ITS | Encounter Summary ---
Author Organization [facility] Address [facility] [place] [address] Care Team Providers Care Meat Soaker Name Role Phone Ashley Huang MD Primary Care Provider [phone] Reason for Visit * Reason Comments Advice Only Encounter Details Date Type Department Care Team (Late st Contact Info) Description 12/27/2014 1:00 PM EDT Office Visit Hematology [place] [id number] Louann Payne MD [facility] [address] [place] [address] Anemia, unspecified anemia type Discharge Disposition: Home Social History Tobacco Use Types Packs/Day Years Used Date Smoking Tobacco: Never Sex and Gender Information Value Date Recorded Sex Assigned at Not on file Gender Identity Not on file Sexual Orientation Not on file documented as of this encounter Last Filed Vital Signs Vital Sign Reading Time Taken Comments Blood Pressure 147/62 12/27/2014 12:45 PM EDT Pulse 95 12/27/2014 12:45 PM EDT Temperature 36.8 ??C (98.2 ??F) 12/27/2014 12:45 PM E DT Respiratory Rate 16 12/27/2014 12:45 PM EDT Oxygen Saturation 99% 12/27/2014 12:45 PM EDT Inhaled Oxygen Concentration - - Weight 46.3 kg (102 lb) 12/27/2014 12:45 PM EDT Height - - Body Mass Index - - documented in this encounter Progress Notes * Louann Payne MD - 12/27/2014 8:52 PM EDT ++++++++++++++++++++++++++++++++++++++++++++++++++++++++++++++++ Attending Addendum: I agree with the history, physical, assessment and plan of the housestaff. I have seen and examinedthe patient on rounds and I have discussed the management with the team. I have reviewed all pertinent laboratory and radiographic findings. This patient meets criteria for inpatient level of care due to the above medical complexity. I agree with the plan above. It was my pleasure to meet this delightful patient. She has just returned from 5 months in [place]. Unfortunately, her labs are from the fall. We will send a full anemia workup screening. She would like followup in [facility] and we will arrange that in about 2 weeks. * Mike Carcamo MD - 12/27/2014 1:02 PM EDT Images from the original note were not included. Outpatient Hematology New Consult Attending Physician: Dr. Louann Payne MD CC: Anemia consult HPI: 69 y.o. woman here for anemia consult. She says she has had anemia off [...] Alirio, today. They just got back from [place] for the past 5 months. Symptoms she [...] abdominal pain. +reflux. No blood in stool. Nomelena. - no dysuria, weak urinary stream, blood in urine, or inability to void. Skin - no rashes, itching, hives, or suspicious lesions MS - no muscle weakness or myalgias, no joint pain or swelling Neuro - no focal weakness, no numbness or tingling Heme - no bleeding, bruising, or lymphadenopathy Past Medical History: Patient Active Problem List Diagnosis ??? Anemia ??? Gastric reflux ??? Anxiety Allergies: Review of patient's allergies indicates no known allergies. Medications: Current outpatient prescriptions:citalopram (CELEXA) 20 mg Tablet, Take 20 mg by mouth daily., Disp: , Rfl: Social History: History Social History Narrative Never smoker. Doesn't drink alcohol currently. Lives with significant other, Alirio. She helps take care of her elderly mother as well. 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 Family History: Family History Problem Relation Age of Onset ??? Anemia Sister Sister and father had diabetes. No FH of significant blood disorders or cancers that she knows of. Vital Signs: BP 147/62 Pulse 95 Temp(Src) 36.8 ??C (98.2 ??F) (Temporal) Resp 16 Wt 46.267 kg (102 lb) SpO2 99% Physical exam: Gen - alert and oriented, no distress, conversant Eyes - pupils equal and reactive to light, no conjunctival injection or discharge Mouth - oropharynx clear, no mucositis, normal tongue and lips Neck - no cervical lymphadenopathy, masses, or stiffness Heart - RRR, no murmurs or rubs, no palpable thrill, normal pulses Lungs - clear to auscultation bilaterally, no wheezes or crackles, breathing symmetrical with no retractions or accessory muscle use Abdomen - no hepatosplenomegaly, no masses, soft, [...] supraclavicular areas; no petechiae or bruising Labs: [facility] labs: 05/15/14 - Hgb 11.4, Hct 35.3%, Ferritin 567, 06/06/14 -FOB negative 12/12/13 - ESR 22, Ferritin 513, TIBC 253, Iron 90, Transferrin 36% 12/12/13 - T protein 6.7, Direct bili 0.06, T bili 0.28, AST 14, ALT 22, Alk Phos 52, Albumin 3.8 Assessment/Plan: 69 y.o. woman who is very healthy but who has had persistent mild anemia. Her ironstores have been adequate and she has no signs of hemolysis (normal bilirubin) or inflammatory disease (normal ESR) that would cause this. Normal exam - no enlarged spleen or nodes. This may be a benign, mild anemia. But we will screen for causes of anemia and look into her current blood counts with some lab tests today. Then she can follow up with Dr. Payne in [facility] for further evaluation as needed. -send labs today: CBC, CMP, ferritin, B12, folate, retic, SPEP, EPO, LDH -plan follow up at [facility] in 2 weeks -will call with results Mike Carcamo MD Fellow, Hematology/Oncology [facility] LAB RESULTS: Results for PREETI ZHANG ( [...] 2.6 - 18.5 mIU/mL 7.5 *UPEP: normal Her workup is normal. Her CBC is also normal. She has no anemia or other cytopenias at this time. Her previous problems were likely lab fluctuation and some may have been spurious. The above is all very reassuring. She does NOT have anemia. The low RBC is a lab artifact, not an accurate measurementof the red blood cells - hemoglobin and hematocrit are, and hers is normal. No further workup or follow up needed at this time. PCP can continue to follow her labs and health over time. If new abnormalities arise, we would be happy to see her back or receive a phone call about her. Reasons for her to return would include a hemoglobin <10, WBC <2 with abnormal diff, or platelets <100. I called and informed her of this. She will not follow up with us for now. Follow up with PCP as above. She was delighted to hear the normal results. Mike Carcamo MD documented in this encounter Miscellaneous Notes * Addendum Note - Melani Parker - 12/27/2014 1:58 PM EDTAddended by: MELANI PARKER on: 12/27/2014 01:58 PM Modules accepted: Orders documented in this encounter Plan of Treatment Not on file documented as of this encounter Procedures Procedure Name Priority Date/Time Associated Diagnosis Comments HEMOGRAM Routine 12/27/2014 2:09 PM EDT Anemia, unspecified anemia type DIFFERENTIAL, AUTOMATED Routine 12/27/2014 2:09 PM EDT Anemia, unspecified anemia type ERYTHROPOIETIN LEVEL Routine 12/27/2014 2:09 PM EDT Anemia, unspecified anemia type RETICULOCYTE COUNT Routine 12/27/2014 2: 09 PM EDT Anemia, unspecified anemia type CBC (WITH DIFF) Routine 12/27/2014 2:09 PM EDT Anemia, unspecified anemia type LACTATE DEHYDROGENASE Routine 12/27/2014 2:09 PM EDT Anemia, unspecified anemia type FOLATE, SERUM Routine 12/27/2014 2:09 PM EDT Anemia, unspecified anemia type FERRITIN Routine 12/27/2014 2:09 PM EDT Anemia, unspecified anemia type VITAMIN B12 Routine 12/27/2014 2:09 PM EDT Anemia, unspecified anemia type COMPREHENSIVE METABOLIC PANEL Routine 12/27/2014 2:09 PM EDT Anemia, unspecified anemia type PROTEIN ELECTROPHORESIS, URINE, RANDOM Routine 12/27/2014 2:07 PM EDT Anemia, unspecified anemia type documented in this encounter Results * Differential, Automated (12/27/2014 2:09 PM EDT) Neutrophil % 56.4 % [facility] Neutrophil Absolute 4.11 1.50 - 6.30 x10(3)/mcL [facility] MILLENNIUM Lymph % 34.4 % CERNER MILLENNIUM Lymphocytes Abs 2.5 1.0 - 3.6 x10(3)/mcL CERNER MILLENNIUM Monocyte % 6.4 % CERNER MILLENNIUM Monocyte Abs 0.5 0.2 - 1.0 x10(3)/mcL CERNER MILLENNIUM Eos % 2.3 % CERNER MILLENNIUM Eosinophils Abs 0.2 0.0 - 0.5 x10(3)/mcL CERNER MILLENNIUM Basophil % 0.5 % CERNER MILLENNIUM Baso Absolute 0.0 0.0 - 0.2 x10(3)/mcL CERNER MILLENNIUM Immature Gran % 0.00 % CERN ER MILLENNIUM Comment: Immature granulocytes(IG's)percentage and absolute count will include metamyelocytes, myelocytes, and promyelocytes. Blood smears from CBCs yielding IG's will be scanned manually for concordance. If this scan disagrees with the automated IG or if promyelocytes are noted, a manual differential will be performed. Immature Gran Absolute 0.00 0.00 - 0.05 x10(3)/mcL [facility] MILLENNIUM Blood specimen (specimen) 12/27/2014 2:09 PM EDT 12/27/2014 2:13 PM EDT Narrative Resulting Agency Comment Spec In Lab Louann Payne MD HEMATOLOGY ORDER NELL CERNER MILLENNIUM * (ABNORMAL) Hemogram (12/27/2014 2:09 PM EDT) White Blood Cell 7.3 4.0 - 10.0 x10(3)/mc L [facility] MILLENNIUM Red Blood Cell 3.83(L) 3.93 - 5.22 x10(6)/mc L CERNER MILLENNIUM Hemoglobin 11.6 11.2 - 15.7 gm/dL CERNER MILLENNIUM Hematocrit 35.2 34.0 - 45.0 % CERNER MILLENNIUM Mean Cell Volume 91.9 79.0 - 94.0 fL CERNER MILLENNIUM Mean Cell Hemoglobin 30.3 26.6 - 32.2 pg CERNER MILLENNIUM Mean Cell Hemoglobin Concentration 33.0 32.0 - 36.5 gm/dL CERNER MILLENNIUM Platelet 279 145 - 370 x10(3)/mc L CERNER MILLENNIUM RDW Standard Deviation 41.9 35.0 - 46.0 fL CERNER MILLENNIUM RDW coefficient of variation 12.5 10.9 - 14.4 % CERNER MILLENNIUM Mean Platelet Volume 9.3 9.0 - 12.0 fL CERN[facility] MILLENNIUM Blood specimen (specimen) 12/27/2014 2:09 PM EDT 12/27/2014 2:13 PM EDT Narrative Resulting Agency Comment Spec In Lab Louann Payne MD HEMATOLOGY ORDER NELL CERMAVERICK GARCÍAENNIUM * (ABNORMAL) Ferritin (12/27/2014 2:09 PM EDT) Pathologist [facility] Ferritin 549(H) 30 - 400 ng/mL CERNER MILLENNIUM Comment: Pediatric reference ranges not verified at [facility], interpret with caution. Reference ranges for females greater than 50 years of age approach values for men, i.e., 30-400 ng/mL. Blood specimen (specimen) 12/27/2014 2:09 PM EDT 12/27/2014 2:13 PM EDT Narrative Resulting Agency Comment Spec In Lab Louann Payne MD CHEMISTRY ORDERA BLES Performing Organization Address [facility] Co de Phone Number CERMAVERICK MILLENNIUM * Reticulocyte Count (12/27/2014 2:09 PM EDT) [facility] Reticulocyte % 1.6 0.5 - 2.4 % CERNER MILLENNIUM Retic Abs # 0.060 0.027 - 0.095 x10(6)/mcL CERNER MILLENNIUM Immature Retic% 2.6 2.3 - 15.9 % CERNER MILLENNIUM Reticulated Hgb 33.3 28.8 - 38.9 pg CERNER MILLENNIUM Immature Plt % 1.3 0.0 - 7.4 % CERNER MILLENNIUM Blood specimen (specimen) 12/27/2014 2:09 PM EDT 12/27/2014 2:13 PM EDT Narrative Resulting Agency Comment Spec In Lab Louann Payne MD HEMATOLOGY ORDER NELL CERAMVERICK MILLENNIUM * Erythropoietin Level (12/27/2014 2:09 PM EDT) Erythropoietin (JANUARY) 7.5 2.6 - 18.5 mIU/mL [facility] Comment: Test Performed by: [place] [email or web address] [address] [address] Automatic Data Processing Planner: Dayanara Garcia, Ph.D. Blood specimen (specimen) 12/27/2014 2:09 PM EDT 12/28/2014 8:38 AM EDT Narrative Resulting Agency Comment Spec In Lab Louann Payne MD LAB SEND OUT ORD ERABLES Performing Organization Address [facility]/ZIP Co de Phone Number [facility] * Lactate Dehydrogenase (12/27/2014 2:09 PM EDT) Lactate Dehydrogenase 148 110 - 220 unit/L [facility] Blood specimen (specimen) 12/27/2014 2:09 PM EDT 12/27/2014 2:13 PM EDT Narrative Resulting Agency Comment Spec In Lab Louann Payne MD CHEMISTRY ORDERA BLES Performing Organization Address [facility] Co de Phone Number [facility] * Folate, serum (12/27/2014 2:09 PM EDT) Folate >20.0 4.6 - 34.8 ng/mL [facility] Blood specimen (specimen) 12/27/2014 2:09 PM EDT 12/27/2014 2:13 PM EDT Narrative Resulting Agency Comment Spec In Lab Louann Payne MD CHEMISTRY ORDERA BLES Performing Organization Address [facility] Co de Phone Number [facility] * Vitamin B12 (12/27/2014 2:09 PM EDT) Vitamin B12 663 207 - 974 pg/mL [facility] Blood specimen (specimen) 12/27/2014 2:09 PM EDT 12/27/2014 2:13 PM EDT Narrative Resulting Agency Comment Spec In Lab Louann Payne MD CHEMISTRY ORDERA ARNOLD CERNER MILLENNIUM * (ABNORMAL) Comprehensive metabolic panel (non-fasting) (12/27/2014 2:09 PM EDT) [facility] Signature Glucose 88 60 - 199 mg/dL CERNER MILLENNIUM Comment:Diabetes: >=200 mg/d L plus symptoms Blood Urea Nitrogen 13 8 - 18 mg/dL CERNER MILLENNIUM Creatinine 0.88 0.70 - 1.20 mg/dL CERNER MILLENNIUM Comment: Please note that the pediatric reference intervals supplied above were not validated at [facility]. Results from pediatric patients should be interpreted in conjunction to the patient's age, height and muscle mass. Sodium 143 135 - 145 mmol/L CERNER MILLENNIUM Potassium 4.3 3.5 - 5.0 mmol/L CERNER MILLENNIUM Comment: Please note: ??Patients with WBC >100,000 may have falsely elevated Potassium levels. ??For accurate Potassium quantification in these patients send serum separator tube (gold top) for subsequent determinations. ??Contact the Clinical Chemistry Laboratory if there are any questions. Chloride 103 98 - 107 mmol/L [facility] MILLENNIUM Carbon Dioxide 22 22 - 31 mmol/L CERNER MILLENNIUM Anion Gap 18(H) 5 - 15 mmol/L CERNER MILLENNIUM Calcium 9.5 8.5 - 10.5 mg/dL CERNER MILLENNIUM Protein, Total 7.4 6.1 - 8.0 gm/dL CERNER MILLENNIUM Albumin 4.5 3.2 - 5.2 gm/dL [facility]ERN[facility] MILLENNI[facility] Aspartate Aminotransferase 16 0 - 30 unit/L CERNER MILLENNIUM Alanine Aminotransferase 11 0 - 30 unit/L [facility]ERNER MILLENNIUM Alkaline Phosphatase 49 40 - 104 unit/L CERNER MILLENNIUM Bilirubin, Total 0.2 0.2 - 1.3 mg/dL CERNER MILLENNIUM Bilirubin, Direct 0.1 0.0 - 0.3 mg/dL CERNER MILLENNIUM Est Glomerular Filtration Rate >60 >=60 CERNER MILLENNIUM Comment: This estimated GFR (eGFR) value was calculated using the MDRD equation which has been validated on patients between the ages of 18 and 70. The MDRD should not be used to assess kidney function in patients < 18 years of age or in patients with extremes of body mass, or in patients with acute kidney failure. This value should be multiplied by 1.2 for patients. For further information please copy and paste the following links into your internet browser. http://[employer]/DHnkdep http://[employer]/DHMCnkf Blood specimen (specimen) 12/27/2014 2:09 PM EDT 12/27/2014 2:13 PM EDT Narrative Resulting Agency Comment Spec In Lab Louann Payne MD CHEMISTRY ORDERA BLES Performing Organization Address [facility]/ZIP Co de Phone Number CERNER MILLENNIUM * Protein Electrophoresis, urine, random (12/27/2014 2:07 PM EDT) Protein, Urine <6 0 - 12 mg/dL CERNER MILLENNIUM U Albumin See Note % total CERNER MILLENNIUM Comment: Total Protein concentration too low to fractionate using current electrophoretic technique. Globulin, Urine Not Applicable % total CERNER MILLENNIUM M1 Band, Urine Not Applicable None Detected % total CERNER MILLENNIUM U Scan Not Applicable CERNER MILLENNIUM Urine specimen (specimen) 12/27/2014 2:07 PM EDT 12/27/2014 2:13 PM EDT Narrative Resulting Agency Comment Spec In Lab Louann Payne MD URINE ORDERABLES Performing Organization Address [facility]/ZIP Co de Phone Number CERNER MILLENNIUM documented in this encounter Visit Diagnoses Diagnosis Anemia, unspecified anemia type documented in this encounter Care Teams Meat Soaker Relationship Specialty Start Date End Date Ashley Huang MD [address] [place] [address] PCP - General 07/02/14 documented as of this encounter
--- OUTSIDE RECORDS SUMMARY | 2024-04-25 15:27 | XMS_ITS | Encounter Summary ---
Author Organization [facility] Address [address] [place] [address] Care Team Providers Care Dewatering Filtering Supervisor Name Role Phone Unknown, Provider Primary Care Provider [phone] Reason for Visit * (Routine/Next Available) - Receiving Office to Obtain Authorization Specialty Diagnoses / Procedures Referred By Shirin gant Referred To Contact Procedures MR OUTSIDE IMAGES NEURO Unknown, ProviderMD Referral ID Status Reason Start Date Expiration Date Visits Requested Visits Authorized [id number] Receiving Office to Obtain Authorization 05/22/2021 1 1 Encounter Details Date Type Department Care Team (Latest Contact Info) Description 05/07/2021 - 05/07/2021 23:59 EDT Hospital Encounter [facility] Secondary Reads [place] Discharge Disposition: Home or Self Care Social [...] Code Departure Means Destination Home or Self Care documented in this encounter Plan of Treatment Not on file documented as of this encounter Procedures Procedure Name Priority Date/Time Associated Diagnosis Comments MR OUTSIDE IMAGES NEURO Routine 05/22/2021 11:17 EDT documented in this encounter Results * MR OUTSIDE IMAGES NEURO (05/22/2021 11:17 EDT) Narrative 05/22/2021 11:17 EDT This is a non-reportable exam. Provider Unknown MD POLANCO OTHER IMAGING OR DERABLES documented in this encounter Visit Diagnoses Not on filedocumented in this encounter Care Teams Dewatering Filtering Supervisor Relationship Specialty Start Date End Date Unknown, Provider, PCP - General 07/15/15 documented as of this encounter
--- OUTSIDE RECORDS SUMMARY | 2024-04-25 15:27 | XMS_ITS | Encounter Summary ---
Author Organization [facility] Address [address] [place] [address] Care Team Providers Care Interactive Developer Name Role Phone Unknown, Provider Primary Care Provider Reason for Visit * Reason Onset Date Comments Appointment Related 04/24/2021 Encounter Details Date Type Department Care Team (Late st Contact Info) Description 04/24/2021 Telephone [facility] Interventional Radiology - [address] [address] Linh Chiu PA-C [address] [facility] [place] [address] Appointment Related Social History Tobacco [...] * Telephone Encounter - Emily Burleson - 04/24/2021 0747 EDT Call to [facility] regarding patient referral from Dr. Huang to evaluate for HARDWARE TECHNICIAN procedure Per MD triage comment additional images required Called and left a detailed voicemail relaying this information with PCP nursing line. I will deny this referral at this time. Office will notify our team if patient has additional MR completed and weshould re evaluate for HARDWARE TECHNICIAN Further questions can be directed to clinic at [phone] option 1 documented in this encounter Plan of Treatment Not on file documented as of this encounter Visit Diagnoses Not on filedocumented in this encounter Care Teams Interactive Developer Relationship Specialty Start Date End Date Unknown, Provider, PCP - General 07/15/15 documented as of this encounter
--- OUTSIDE RECORDS SUMMARY | 2024-04-25 15:27 | XMS_ITS | Encounter Summary ---
Author Organization [facility] Address [address] [place] [address] Care Team Providers Care Refractory Grinder Operator Name Role Phone Unknown, Provider Primary Care Provider [phone] Reason for Visit * (Routine) - Receiving Office to Obtain Authorization Specialty Diagnoses / Procedures Referred By Shirin gant Referred To Contact Procedures XR OUTSIDE IMAGES NEURO Unknown, ProviderMD Referral ID Status Reason Start Date Expiration Date Visits Requested Visits Authorized [id number] Receiving Office to Obtain Authorization 04/18/2021 1 1 Encounter Details Date Type Department Care Team (Latest Contact Info) Description 04/07/2021 - 04/07/2021 23:59 EDT Hospital Encounter [facility] Secondary [place] Discharge Disposition: Home [...] Procedure Name Priority Date/Time Associated Diagnosis Comments XR OUTSIDE IMAGES NEURO Routine 04/18/2021 18:32 EDT documented in this encounter Results * XR OUTSIDE IMAGES NEURO (04/18/2021 18:32 EDT) Narrative 04/18/2021 18:32 EDT This is a non-reportable exam. Provider Unknown MD POLANCO OTHER IMAGING OR DERABLES documented in this encounter Visit Diagnoses Not on filedocumented in this encounter Care Teams Refractory Grinder Operator Relationship Specialty Start Date End Date Unknown, Provider, PCP - General 07/15/15 documented as of this encounter
--- OUTSIDE RECORDS SUMMARY | 2024-04-25 15:27 | XMS_ITS | Encounter Summary ---
Author Organization [facility] Address [address] [place] [address] Care Team Providers Care Hr Payroll Coordinator Name Role Phone Unavailable Primary Care Provider Unavailbettye e Encounter Details Date Type Department Care Team (Late st Contact Info) Description 10/19/2003 Results Only [facility] [address] [place] [address] Ashley Huang MD [address] [place], [place] [address] Social History Tobacco Use Types Packs/Day Years Used Date Smoking Tobacco: Never Assessed Sex and Gender Information Value Date Recorded Sex Assigned at Not on file Gender Identity Not on file Sexual Orientation Not on file documented as of this encounter Plan of Treatment Not on file documented as of this encounter Procedures Procedure Name Priority Date/Time Associated Diagnosis Comments HPV DETECTION, HIGH RISK TYPES Routine 10/19/2003 13:14 EST CYTOPATHOLOGY Routine 10/19/2003 0:00 EST documented in this encounter Results * HUMAN PAPILLOMA VIRUS DNA TEST (10/19/2003 13:14 EST) Specimen Description Cervix, ThinPrep vial [facility] Result Negative for HPV types 16, 18, 31, 33, 35, 39, 45, 51, 52, 56, 58, 59, and 68. [facility] Report Status Final [id number] [facility] 10/19/2003 13:1 4 EST 10/26/2003 13:14 EST Ashley Huang MD MICROBIOLOGY - GENER AL ORDERABLES [facility] [address] [place] [address] * CYTOPATHOLOGY (10/19/2003 0:00 EST) Pathology Report: CYTOPATHOLOGY REPORT Reports generated via electronic interface contain original data; however they are lacking the format of the original report. Caution should be taken when reading/interpreti ng unformatted reports. Name: ? PREETI ZHANG ? Accession #: ? [id number] : ? 1945 (Age: 58) ??F ?Collect Date: ? 10/19/2003 Location: ? [facility] ? Receive Date: ? 10/23/2003 Provider: ?ASHLEY HUANG MD Copy to: ? Specimen/Source: ?ThinPrep Pap Test, Cervix/Endocervix Last Menstrual Period: ? Menstrual/Pregnanc y Status: ? Post Menopausal Previous Gynecologic Pathology: ? Yes Other: ? HPVDX - HPV testing requested regardless of diagnosis on current ThinPrep Pap test. ? SPECIMEN ADEQUACY ? Satisfactory for Evaluation - transformation zone component present - scant squamous epithelial component GENERAL CATEGORIZATION ? Negative for Intraepithelial Lesion or Malignancy ? Document reviewed and electronically signed by: ? KAREN Durham(ASCP) ? Report Date: ??10/25/2003 12:18 End of Report [facility] 10/19/2003 10/23/2003 Ashley Huang MD PATHOLOGY ORDERABLES [facility] [address] [place] [address] documented in this encounter Visit Diagnoses Not on filedocumented in this encounter
--- OUTSIDE RECORDS SUMMARY | 2024-04-25 15:27 | XMS_ITS | Encounter Summary ---
Author Organization [facility] Address [facility] [place] [address] Care Team Providers Care Fur Glazer Name Role Phone Ashley Huang MD Primary Care Provider [phone] Reason for Visit * Consultation (Routine) - Closed Specialty Diagnoses / Procedures Referred By Shirin t Referred To Contact Endocrinology Diagnoses Age-related osteoporosis without current pathological fracture Ashley Huang MD [address] [place] [address] [facility] [address] [place] [id number] Referral ID Status Reason Start Date Expiration Date V isits Requested Visits Authorized [id number] Closed Consult, [facility] PCP Updated and/or Approved 05/09/2021 05/09/2022 12 12 Encounter Details Date Type Department Care Team (Latest Contact Info) Description 08/04/2021 2:00 PM EST TH Visit (TeleHealth) [place] [address] Lou Sawyer MD [facility] [place] [address] Osteoporosis with pathological fracture with routine healing, subsequent encounter; Other osteoporosis without current pathological fracture Social History Tobacco Use Types Packs/Day Years Used Date Smoking Tobacco: Never Sex and Gender Information Value Date Recorded Sex Assigned at Not on file Gender Identity Not on file Sexual Orientation Not on file documented as of this encounter Progress Notes * Lou Sawyer MD - 08/04/2021 2:00 PM EST Date of Visit: 08/04/2021 Patient Name: Preeti Zhang : 1945 PCP: Ashley Huang MD Reason for Referral We are asked to consult on Mrs Preeti Zhang , she is 76yo, for severe osteoporosis by Dr. Ashley Huang MD. It was supposed to be telemedicine alisia, but she did not signed on, I called her on the phone. 06/2020 MRI showed T11m L3 and L4 fx after I showeled snow. Underwent vertebroplasty and PT and believes pain is better. Per pt 6 month ago was started on alendronate, takes it correctly and has no side effects. She has been on prednisone now, started out 20mg, now 3mg daily for last 6 month. Her last BMD by DXA done on 05/2020 LS - 3.4 SD LFN -3.5 SD Distal 1/3 forearm -3.9 SD on T score Other risk factors for fracture/osteoporosis are: [] Yes [x] No Smoking, if yes, how long [] Yes [x] No Drinking alcohol. If yes, how much Average time spent outside in direct sun a day [x] 0-5 min [] 5-10 min [] 11-15 min [] 16-20 min [] 21-25 min [] 26-30 min [] >30 min Daily calcium intake: [] 0-100 mg [] 101-200 mg [] 201-300 mg [] 301-400 mg [] 401-500 mg [] 501-600 mg [] 601-700 mg [] 701-900 mg [x] 901-1100 mg yogurt daily, milk with cereal daily, cone of ice cream daily, cottage cheese daily, MVI daily [] 1673-8471 mg [] 9409-3250 mg [] Above 1500 mg Medications: Current Outpatient Medications on File Prior to Visit Medication Sig Dispense Refill ??? HYDROcodone-acetaminophen ([place]) 5-325 mg Tablet Take 5-325 mg by mouth 3 times daily as needed. ??? multivitamin (THERAGRAN) Tablet Take 1 tablet by mouth daily. ??? BIOTIN ORAL Take by mouth. ??? b complex vitamins Capsule Take 1 capsule by mouth daily. ??? citalopram (CELEXA) 20 mg Tablet Take 20 mg by mouth daily. No current facility-administered medications on file prior to visit. [x] Yes [] No Glucocorticoid dose. When first prescribed? [] Yes [x] No Cyclosporine dose. When first prescribed? [] Yes [x] No Phenobarbital and phenytoin. When first prescribed? [] Yes [x] No Rosiglitazone, pioglitazone. When first prescribed? [] Yes [x] No PPI. When first prescribed? [x] Yes [] No SSRI. When first prescribed? [] Yes [x] No Thiaizdes, loop diuretics. When first prescribed? [] Yes [x] No Estrogens, testosterone. When first prescribed? [] Yes [x] No Calcitonin. When first prescribed? [] Yes [x] No Aromatase inhibitors (breast CA). When first prescribed? [] Yes [x] No Androgen deprivation therapy (prostate CA). When first prescribed? [x] Yes [] No Alendronate, risedronate, ibandronate. When first prescribed? PMH: Patient Active Problem List Diagnosis Code ??? Anemia D64.9 ??? Gastric reflux K21.9 ??? Anxiety F41.9 Allergy: No Known Allergies Family History Problem Relation Age of Onset ??? Anemia Sister Social History Socioeconomic History ??? Marital status: Single Spouse name: Not on file ??? Number of children: Not on file ??? Years of education: Not on file ??? Highest education level: Not on file Occupational History ??? Not on file Tobacco Use ??? Smoking status: Never Smoker ??? Smokeless tobacco: Not on file Substance and Sexual Activity ??? Alcohol use: Not on file ??? Drug use: Not on file ??? Sexual activity: Not on file Other Topics Concern ??? Not on file Social History Narrative Never smoker. Doesn't drink alcohol currently. Lives with significant other, Alirio. She helps take care of her elderly mother as well. 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 Social Determinants of Health Financial Resource Strain: Not on file Food Insecurity: Not on file Transportation Needs: Not on file Physical Activity: Not on file Housing Stability: Not on file Physical Examination: Sounds, oriented x 3, in nad. Labs From outside 03/2021 HCT 32.2 Assessment and Plan 1. S/p spine compression fractures/severe osteoporosis: Mrs Preeti Zhang has minimal trauma fractures due to severe osteoporosis. Corticosteroids and SSRIs contributing to it. A. As patient's Ca intake is 900 mg from food, and 200mg from MVI, will get 24h urine Ca to see if appropriate. B. Patient also doesn't have Vitamin D done; goal is 30 ng/ml and above. Will check 25, Vit D now. C. Will order BMD by DXA in 12 month. Get SPEP as pt has anemia. D. If 25 Vit D, PTH, 24h urine Ca, SPEP at good range will discuss anabolic treatments. For now continue alendronate. E. I will schedule patient for outpatient visit at 12 weeks. Thank you for allowing me to participate in the care of this very pleasant patient. I spend 60min in chart review of Labs, xrays, DXA and discussing osteoporosis and writing my note. Sincerely, Lou Sawyer MD Professor documented in this encounter Plan of Treatment Not on file documented as of this encounter Visit Diagnoses Diagnosis Osteoporosis with pathological fracture with routine healing, subsequent encounter documented in this encounter Care Teams Fur Glazer Relationship Specialty Start Date End Date Ashley Huang MD [address] [place] [address] PCP - General 07/02/14 documented as of this encounter
--- OUTSIDE RECORDS SUMMARY | 2024-04-25 15:27 | XMS_ITS | Encounter Summary ---
Author Organization [facility] Address [address] [place] [address] Care Team Providers Care Livestock Brands Inspector Name Role Phone Unknown, Provider Primary Care Provider [phone] Reason for Visit * (Routine) - Receiving Office to Obtain Authorization Specialty Diagnoses / Procedures Referred By Shirin gant Referred To Contact Procedures MR OUTSIDE IMAGES NEURO Unknown, ProviderMD Referral ID Status Reason Start Date Expiration Date Visits Requested Visits Authorized [id number] Receiving Office to Obtain Authorization 04/18/2021 1 1 Encounter Details Date Type Department Care Team (Latest Contact Info) Description 06/06/2020 - 06/06/2020 23:59 EDT Hospital Encounter [facility] Secondary Reads [place] Discharge Disposition: Home [...] Diagnosis Comments MR OUTSIDE IMAGES NEURO Routine 04/18/2021 18:29 EDT documented in this encounter Results * MR OUTSIDE IMAGES NEURO (04/18/2021 18:29 EDT) Narrative 04/18/2021 18:29 EDT This is a non-reportable exam. Provider Unknown MD [facility] OTHER IMAGING OR DERABLES documented in this encounter Visit Diagnoses Not on filedocumented in this encounter Care Teams Livestock Brands Inspector Relationship Specialty Start Date End Date Unknown, Provider, PCP - General 07/15/15 documented as of this encounter
--- OUTSIDE RECORDS SUMMARY | 2024-04-25 15:27 | XMS_ITS | Encounter Summary ---
Author Organization [facility] [place] [address] Care Team Providers Care Food Service Substitute Name Role Phone Ashley Huang MD Primary Care Provider Encounter Details Date Type Department Care Team (Late st Contact Info) Description 05/15/2020 Ancillary Procedure [place] [address] Ashley Huang MD [address] [place] [address] Social History Tobacco Use Types Packs/Day Years Used Date Smoking Tobacco: Never Sex and Gender Information Value Date Recorded Sex Assigned at Not on file Gender Identity Not on file Sexual Orientation Not on file documented as of this encounter Plan of Treatment Not on file documented as of this encounter Procedures Procedure Name Priority Date/Time Associated Diagnosis Comments FILM LIBRARY- STORAGE ONLY DXA IMAGES Routine 05/15/2020 12:00 AM EDT documented in this encounter Results * Film Library- Storage Only DXA Images (05/15/2020 12:00 AM EDT) Narrative [facility] - 06/08/2020 12:31 PM EDT This exam is auto-finalizing. It's purpose is for storage only. Ashley Huang MD IMG FILM LIBRARY ORD ERABLES [place], [place] documented in this encounter Visit Diagnoses Not on filedocumented in this encounter Care Teams Food Service Substitute Relationship Specialty Start Date End Date Ashley Huang MD [address] [place] [address] PCP - General 07/02/14 documented as of this encounter
--- OUTSIDE RECORDS SUMMARY | 2024-04-25 15:27 | XMS_ITS | Encounter Summary ---
Author Organization [facility] Address [address] [place] [address] Care Team Providers Care Shank Threader Name Role Phone Unknown, Provider Primary Care Provider Reason for Visit * Reason Onset Date Comments Appointment Related 07/11/2021 Encounter Details Date Type Department Care Team (Late st Contact Info) Description 07/11/2021 Telephone [facility] Interventional Radiology - [address] [address] Linh Chiu PA-C [address] [facility], Level [address] [place] [address] Appointment Related Social History Tobacco [...] encounter Miscellaneous Notes * Telephone Encounter - Benjy Emily - 07/11/2021 1036 EDT Returned phone call to Preeti 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 She would still like opportunity to meet with provider to discuss but unsure if she will proceed. She would like to discuss risk and benefit with Linh Chiu PA-C I confirmed with Preeti we can see her in person on 07/24 @ 10:00am for consultation to discuss risk and benefit regarding her fracture. She will be here that am and notify us a few days in advance if this appointment is no longer needed. Ms. Zhang verbalized understanding and agrees with Plan of Care. No cognitive barriers were identified during this conversation. She has our contact number to call with questions. Emily Burleson documented in this encounter Plan of Treatment Not on file documented as of this encounter Visit Diagnoses Not on filedocumented in this encounter Care Teams Shank Threader Relationship Specialty Start Date End Date Unknown, Provider, PCP - General 07/15/15 documented as of this encounter
--- OUTSIDE RECORDS SUMMARY | 2024-04-25 15:27 | XMS_ITS | Encounter Summary ---
Author Organization [facility] Address [address] [place] [address] Care Team Providers Care Director Of Radiology Name Role Phone Unknown, Provider Primary Care Provider Reason for Visit * Reason Onset Date Comments Appointment Related 04/18/2021 Encounter Details Date Type Department Care Team (Late st Contact Info) Description 04/18/2021 Telephone [facility] Interventional Radiology - [address] [address] Linh Chiu PA-C [address] [facility], [address] [place] [address] Appointment Related Social History Tobacco [...] * Telephone Encounter - Emily Burleson - 04/18/2021 1527 EDT Call to [facility] to obtain copies of patients prior images to evaluate for ELECTRICAL TESTS SUPERVISOR Per notes patient should have had XR and MR completed. Left detailed voicemail requesting images be pushed to pacs system so we can triage request. documented in this encounter Plan of Treatment Not on file documented as of this encounter Visit Diagnoses Not on filedocumented in this encounter Care Teams Director Of Radiology Relationship Specialty Start Date End Date Unknown, Provider, PCP - General 07/15/15 documented as of this encounter
--- OUTSIDE RECORDS SUMMARY | 2024-04-25 15:27 | XMS_ITS | Encounter Summary ---
Author Organization [facility] Address [address] [place] [address] Care Team Providers Care Case Packer Name Role Phone Unknown, Provider Primary Care Provider [phone] Encounter Details Date Type Department Care Team (Late st Contact Info) Description 06/14/2017 Results Only [facility] [phone] Kennedy Carter, [address] [place], [place] [address] Social History Tobacco Use Types Packs/Day Years Used Date Smoking Tobacco: Never Assessed Sex and Gender Information Value Date Recorded Sex Assigned at Not on file Gender Identity Not on file Sexual Orientation Not on file documented as of this encounter Plan of Treatment Not on file documented as of this encounter Procedures Procedure Name Priority Date/Time Associated Diagnosis Comments SURGICAL PATHOLOGY Routine 06/14/2017 9:27 EDT documented in this encounter Results * SURGICAL PATHOLOGY (06/14/2017 9:27 EDT) Pathology Report: SURGICAL PATHOLOGY REPORT Reports generated via electronic interface contain original data; however they are lacking the format of the original report. Caution should be taken when reading/interpret ing unformatted reports. Name: ? PREETI ZHANG ? Accession #: ? [id number] ? : ? 1945 (Age: 72) ??F ? Collect Date: ? 06/14/2017 ? Location: ? [facility] ? Receive Date: ? 06/15/2017 ? Provider: KENNEDY CARTER DO Copy to: JORY HONG MD ? Final Pathologic Diagnosis: SKIN OF CHEEK, LEFT, SHAVE BIOPSY: - Actinic keratosis. - Lesion extends to peripheral edge and base of biopsy specimen. Document reviewed and electronically signed by: THEE QUEZADA MD Report ??Date: 06/16/2017 14:04 By the signature above, the attending physician certifies that he/she has personally conducted a gross and/or microscopic examination of the described specimens and rendered or confirmed the above diagnosis. Specimen(s) Received: Left cheek Clinical History: FH melanoma; nonhealing skin; clinical diagnosis code: ??D49.2 Gross Description: ? Received in formalin labelled with proper patient identification (initials D, S) and left cheek is an irregular skin shave, 0.9 x 0.7 x 0.1 cm. The skin surface is dusky green with central granularity. The margin is inked. Trisected and entirely submitted in 1. SHAHIDA Dave (ASCP) 06/15/2017 11:28 AM End of Report [facility] 06/14/2017 9:27 EDT 06/15/2017 9:27 EDT Kennedy Carter DO PATHOLOGY ORDER NELL [facility] [address] [place] [address] documented in this encounter Visit Diagnoses Not on filedocumented in this encounter Care Teams Case Packer Relationship Specialty Start Date End Date Unknown, Provider, PCP - General 07/15/15 documented as of this encounter
--- OUTSIDE RECORDS SUMMARY | 2024-04-25 15:27 | XMS_ITS | Clinical Summary ---
Author Organization [facility] Address [facility] [place] [address] Care Team Providers Care Ux Information Architect Name Role Phone Ashley Huang MD Primary Care Provider [phone] Allergies No known active allergies Medications Medication Sig Dispensed Refills Start Date End Date Status citalopram (CELEXA) 20 mg Tablet Take 20 mg by mouth daily. Active multivitamin (THERAGRAN) TabletIndications:Anem ia, unspecified anemia type Take 1 tablet by mouth daily. Active BIOTIN ORALIndications:Anemia , unspecified anemia type Take by mouth. Active b complex vitamins CapsuleIndications:Ane may, unspecified anemia type Take 1 capsule by mouth daily. Active HYDROcodone-acetaminop hen ([place]) 5-325 mg Tablet Take 5-325 mg by mouth 3 times daily as needed. 06/07/2020 Active Active Problems Problem Noted Date Diagnosed Date Anemia 12/27/2014 Overview (01/09/2015): Workup in December 2014 with normal iron levels, no signs of hemolysis, low erythropoietin level despite normal creatinine, SPEP pending. Normocytic normochromic, unclear etiology for the anemia. Does not meet criteria at this time for risk for potent supplementation. Plans to follow every 6 months in hematology clinic. Gastric reflux 12/27/2014 Anxiety 12/27/2014 Family History Medical History Relation Comments Anemia Sister Relation Status Comments Sister Social History Tobacco Use Types Packs/Day Years Used Date Smoking Tobacco: Never Sex and Gender Information Value Date Recorded Sex Assigned at Not on file Gender Identity Not on file Sexual Orientation Not on file Last Filed Vital Signs Vital Sign Reading [...] Mass Index 20.48 02/26/2016 1:11 PM EDT Plan of Treatment Health Maintenance Due Date Last Done Comments Hepatitis C Screening 1963 Tdap adult 1964 Tetanus vaccine 1964 Zoster vaccine (1 of 2) 1995 Advance Directive 2000 Bone Density Scan 2010 Pneumoccocal Vaccine: 65+ (1 of 1 - PCV) 2010 Covid-19 Vaccine (1 - 2022- season) 2023 Influenza (Flu) vaccine (1 o f 1 - Influenza standard series) 05/07/2024 Advance Directives * Attempt Cardiopulmonary Resuscitation - Inpatient (Latest Code Status on File) Date Activated Date Inactivated Comments 06/19/2020 10:16 AM 06/20/2020 4:42 AM Question Answer Comments Code Status decision made by: Patient Care Teams Ux Information Architect Relationship Specialty Start Date End Date Ashley Huang MD [address] [place] [address] PCP - General 07/02/14
--- OUTSIDE RECORDS SUMMARY | 2024-04-25 15:27 | XMS_ITS | Encounter Summary ---
Author Organization [facility] Address [address] [place] [address] Care Team Providers Care Nitrogen Operator Name Role Phone Unavailable Primary Care Provider Unavailabl e Encounter Details Date Type Department Care Team (Late st Contact Info) Description 09/08/2011 Results Only [facility] - [facility] ([facility] [address] [place] [id number] Ashley Huang MD [address] [place], [place] [id number] Social History Tobacco Use Types Packs/Day Years Used Date Smoking Tobacco: Never Assessed Sex and Gender Information Value Date Recorded Sex Assigned at Not on file Gender Identity Not on file Sexual Orientation Not on file documented as of this encounter Plan of Treatment Not on file documented as of this encounter Procedures Procedure Name Priority Date/Time Associated Diagnosis Comments PAP TEST- RESULT ONLY Routine 09/08/2011 0:00 EST documented in this encounter Results * PAP TEST- RESULT ONLY (09/08/2011 0:00 EST) Pathology Report: CYTOPATHOLOGY REPORT Reports generated via electronic interface contain original data; however they are lacking the format of the original report. Caution should be taken when reading/interpreti ng unformatted reports. Name: ? PREETI ZHANG ? Accession #: ? [id number] ? : ? 1945 (Age: 66) ??F ?Collect Date: ? 09/08/2011 ? Location: ? [facility] ? Receive Date: ? 09/09/2011 ? Provider: ASHLEY HUANG MD Copy to: ? Final Report SPECIMEN ADEQUACY ? Satisfactory for Evaluation - transformation zone component present GENERAL CATEGORIZATION ? Negative for Intraepithelial Lesion or Malignancy ?? Last Menstural Period: 18 yrs ago Specimen/Source: ??Pap Test, Cervix/Endocervix, ThinPrep Imaging System with manual evaluation Document reviewed and electronically signed by: ? Preeti Webster, [facility](ASCP) ? Report ??Date: 09/11/2011 11:13 HPV with Pap Test ? Date Ordered: ? 09/11/2011 ? Status: ?? Signed Out ?Date Complete: ? 09/15/2011 ? By: ??System Interface ? Date Reported: ? 09/15/2011 ? Interpretation RESULT: Negative for HPV types 16, 18, 31, 33, 35, 39, 45, 51, 52, 56, 58, 59, and 68. Comments Document reviewed and electronically signed by: ? System Interface ? Report date: 09/15/2011 By the signature above, the attending physician certifies that he/she has personally conducted a gross and/or microscopic examination of the described specimens and rendered or confirmed the above diagnosis. End of Report [facility] 09/08/2011 09/09/2011 Ashley Huang MD PATHOLOGY ORDERABLES [facility] [address] [place] [address] documented in this encounter Visit Diagnoses Not on filedocumented in this encounter
--- OUTSIDE RECORDS SUMMARY | 2024-04-25 15:27 | XMS_ITS | Encounter Summary ---
Author Organization [facility] Address [address] [place] [address] Care Team Providers Care Instructional Technology Facilitator Name Role Phone Unavailable Primary Care Provider Unavailabl e Encounter Details Date Type Department Care Team (Late st Contact Info) Description 07/18/2008 Before [facility] Converted Visit (Maple) [facility] - Maple conversion [address] [place] [address] Ghassan Rogers PA-C [address] [place] [id number] Social History Tobacco Use Types Packs/Day Years Used Date Smoking Tobacco: Never Assessed Sex and Gender Information Value Date Recorded Sex Assigned at Not on file Gender Identity Not on file Sexual Orientation Not on file documented as of this encounter Plan of Treatment Not on file documented as of this encounter Procedures Procedure Name Priority Date/Time Associated Diagnosis Comments CYTOPATHOLOGY Routine 07/18/2008 0:00 EST documented in this encounter Results * CYTOPATHOLOGY (07/18/2008 0:00 EST) Pathology Report: CYTOPATHOLOGY REPORT ? Reports generated via electronic interface contain original data; ? however they are lacking the format of the original report. ? Caution should be taken when reading/interpreti ng unformatted reports. ? Name: ? PREETI ZHANG ? Accession #: ? [id number] ? : ? 1945 (Age: 63) ??F ?Collect Date: ? 07/18/2008 ? Location: ? [facility] ? Receive Date: ? 07/19/2008 ? Provider: ?GHASSAN PINEDO ? Copy to: ? Specimen/Source: ?Pap Test, Endocervix, ThinPrep Imaging System with ? manual evaluation ? Last Menstrual Period: ? 2000 ? Other: ? HPVA - HPV testing requested if ASC-US on the current ThinPrep Pap test. ? SPECIMEN ADEQUACY ? Satisfactory for Evaluation ? - assessment of transformation zone component not applicable ( e.g. atrophy, ? vaginal sample, hysterectomy) ? - scant squamous epithelial component secondary to excessive inflammation ? GENERAL CATEGORIZATION ? Negative for Intraepithelial Lesion or Malignancy ? Document reviewed and electronically signed by: ? Preeti Webster, SCT(ASCP) ? Report Date: ??07/25/2008 09:32 ? End of Report ? [facility] 07/18/2008 07/19/2008 Ghassan Rogers PA-C PATHOLOGY [facility] [address] [place] [address] documented in this encounter Visit Diagnoses Not on filedocumented in this encounter
--- OUTSIDE RECORDS SUMMARY | 2024-04-25 15:27 | XMS_ITS | Clinical Summary ---
Author Organization [facility] Address [address] [place] [address] Care Team Providers Care Cold Press Operator Name Role Phone Unknown, Provider Primary [...] Orientation Not on file Plan of Treatment Health Maintenance Due Date Last Done Comments Hepatitis C Screen 1945 RSV Immunization ( o r 60+ Years) (1 - 1-dose 60+ series) 2005 Fall Risk Screening 2010 COVID-19 Vaccine (2022-24 season) 2023 Care Teams Cold Press Operator Relationship Specialty Start Date End Date Unknown, Provider, PCP - General 07/15/15
--- OUTSIDE RECORDS SUMMARY | 2024-04-25 15:27 | XMS_ITS | Encounter Summary ---
Author Organization [facility] Address [address] [place] [address] Care Team Providers Care Soaker Name Role Phone Unknown, Provider Primary Care Provider Reason for Visit * Reason Onset Date Comments Appointment Related 07/01/2021 Encounter Details Date Type Department Care Team (Late st Contact Info) Description 07/01/2021 Telephone [facility] Interventional Radiology - [address] [id number] Linh Chiu PA-C [address] [facility], [address] [place] [address] Appointment Related Social History Tobacco [...] * Telephone Encounter - Emily Burleson - 07/01/2021 [id number] EDT I left a message for Preeti with my name, title, and phone number, requesting a call back. Called to schedule consultation with Neuro IR to discuss DIRECTOR OF [employer]ATIONS I have updated this patients contact information to be able to contact after original referral obtained- numbers in epic were incorrect Explained via voicemail consultation has been scheduled for early July and requesting patient get back to us to verify if she would like to proceed with consult to discuss [employer]OR OF [employer]ATIONS Requesting return phone call to [phone] option 1 documented in this encounter Plan of Treatment Not on file documented as of this encounter Visit Diagnoses Not on filedocumented in this encounter Care Teams Soaker Relationship Specialty Start Date End Date Unknown, Provider, PCP - General 07/15/15 documented as of this encounter
--- OUTSIDE RECORDS SUMMARY | 2024-04-25 15:27 | XMS_ITS | Encounter Summary ---
Author Organization [facility] [place] [address] Care Team Providers Care Geography Instructor Name Role Phone Ashley Huang MD Primary Care Provider [phone] Encounter Details Date Type Department Care Team (Late st Contact Info) Description 05/15/2020 12:05 AM EDT Ancillary Procedure [place] [address] Ashley Huang MD [address] [place] [id number] Social History Tobacco Use Types Packs/Day Years Used Date Smoking Tobacco: Never Sex and Gender Information Value Date Recorded Sex Assigned at Not on file Gender Identity Not on file Sexual Orientation Not on file documented as of this encounter Plan of Treatment Not on file documented as of this encounter Procedures Procedure Name Priority Date/Time Associated Diagnosis Comments FILM LIBRARY STORAGE ONLY DX SPINE Routine 05/15/2020 12:05 AM EDT documented in this encounter Results * Film Library- Storage Only DX Spine (05/15/2020 12:05 AM EDT) Narrative RAD - 06/08/2020 12:33 PM EDT This exam is auto-finalizing. It's purpose is for storage only. Ashley Huang MD IMG FILM LIBRARY ORD ERABLES [place], [place] documented in this encounter Visit Diagnoses Not on filedocumented in this encounter Care Teams Geography Instructor Relationship Specialty Start Date End Date Ashley Huang MD [address] [place] [address] PCP - General 07/02/14 documented as of this encounter
[2024-04-25 22:23] LABS: ESR 26 mm/hr (0-30); HCT 35.8 % (36.0-46.0); HGB 11.9 g/dL (11.2-15.7); MCH 32.1 pg (27.0-33.0); MCHC 33.2 % (32.0-36.0); MCV 97 fL (80-95); MPV 9.6 fL (8.0-11.0); Platelet Count 325 10^3/uL (130-400); RBC 3.71 10^6/uL (3.93-5.22); RDW 12.5 % (11.7-14.6); RDW-SD 44.5 fL; WBC 8.22 10^3/uL (4.4-10.8)
[2024-04-25 22:48] LABS: C-Reactive Protein 1.21 mg/dL (<or=0.5)
== END 2024-04-25 15:23 | disposition home or self-care (01) ==
LOC: NCHCN 15:22
PROVIDERS: PCP Family Medicine; Visit Provider Family Medicine
DX: M31.6 Other giant cell arteritis (principal)
CPT/HCPCS: 85027; 85652; 86140

== ENCOUNTER 2025-05-01 15:25 | Outpatient (REF) | payer MEDICARE, SELFPAY ==
[2025-05-01 16:10] LABS: HCT 35.1 % (36.0-46.0); HGB 11.3 g/dL (11.2-15.7); MCH 30.7 pg (27.0-33.0); MCHC 32.2 % (32.0-36.0); MCV 95 fL (80-95); MPV 9.4 fL (8.0-11.0); Platelet Count 354 10^3/uL (130-400); RBC 3.68 10^6/uL (3.93-5.22); RDW 13.4 % (11.7-14.6); RDW-SD 47.7 fL; WBC 7.43 10^3/uL (4.4-10.8)
[2025-05-01 17:04] LABS: Anion Gap 11.3 mmol/L (3-11); BUN 8 mg/dL (7-18); CO2 27.7 mmol/L (21.0-32.0); Calcium 9.2 mg/dL (8.5-10.1); Calculated LDL 101 mg/dL (<100); Chloride 104 mmol/L (98-107); Cholesterol 214 mg/dL (<200); Estimated GFR 91.25 (mL/min/1.73m2); Glucose 89 mg/dL (74-106); HDL Cholesterol 47 mg/dL (>or=50); Hemoglobin A1C 4.8 % (<5.7); Potassium 4.8 mmol/L (3.5-5.1); Sodium 143 mmol/L (136-145); Triglyceride 330 mg/dL (<150)
== END 2025-05-01 15:26 | disposition home or self-care (01) ==
LOC: NCHCN 15:25
PROVIDERS: PCP Family Medicine; Visit Provider Family Medicine
DX: D64.9 Anemia, unspecified (principal); Z13.1 Encounter for screening for diabetes mellitus; Z13.220 Encounter for screening for lipoid disorders
CPT/HCPCS: 80048; 80061; 85027; 83036